=== PATIENT | female | born 1975 | race Caucasian/White ===

== ENCOUNTER 2016-07-18 00:57 | Inpatient (IN) | payer OTHER ==
[2016-07-18] VITALS (20 sets, daily range): BP systolic 115–179; BP diastolic 64–116
[~2016-07-18] VITALS: Ht 162.6 cm; Wt 54.1 kg
[~2016-07-18 00:57] MED LIST: ATIVAN0.5 MG PO; ATIVAN1 MG PO; BLOOD PRESSURE MED; BP MED; CIPROFLOXACIN500 MG PO; CYANOCOBALAM1000 MCG PO; DILANTIN100 MG PO; FERROUS SULFAT325 M2 PO; FOLBEE PLUS TABL5 MG PO; FOLVITE1 MG PO; GEMFIBROZIL600 MG PO; LEVAQUIN500 MG PO; LEVETIRACETAM1000 MG PO; LEVETIRACETAM250 MG PO; LISINOPRIL20 MG; LISINOPRIL20 MG PO; LORAZEPAM1 MG PO; Levaquin PO; MACROBID100 MG PO; MAG-OX400 M1 PO; METOCLOPRAMIDE10 MG PO; MOBIC7.5 MG PO; NOHOMEMEDS; OS-CAL 500+D T1 EAC1 PO; PHENERGAN12.5 M1 PO; PRENATAL1 EACH PO; ROBITUSSIN AC,T10 ML PO; SERTRALINE HCL100 MG PO; THERAGRAN1 TABLET PO; THIAMINE,VITAM100 MG PO; TYLENOL WITH C1 EACH PO; VITAMIN B-1100 MG PO; ZESTRIL,PRINIVI20 MG PO; ZOLOFT100 MG PO; [UNRECOGNIZED DRUG - REMARK]
[2016-07-18 01:24] LABS: CARBOXY HGB -0.1 % (0-5); PCO2 < 19 mm Hg (35-45); PO2 83 mm Hg (80-100)
[2016-07-18 01:29] LABS: COMMENTS - BLOOD GASES C+A+; FI02 21 %; O2 FLOW 0 L/MIN; SITE RR; pH 7.13 (7.35-7.45)
[2016-07-18 01:36] LABS: CREATININE 0.6 mg/dL (0.6-1.3); POTASSIUM 3.1 mEq/L (3.7-5.4)
[2016-07-18 01:55] LABS: EOSINOPHIL (%) 0.1 % (0-5); HEMATOCRIT 37.5 % (36.0-46.0); IMMATURE GRANULOCYTE (%) 2.9 % (0.0-0.7); IMMATURE GRANULOCYTE COUNT 0.4 K/uL; INSTRUMENT ABS NEUTROPHIL CT 13.6 K/uL; LYMPHOCYTE COUNT 0.5 K/uL (1.0-2.8); MCH 33.4 PG (29.0-34.0); MCHC 34.1 G/DL (30.0-36.0); MCV 97.9 FL (83-99); MEAN PLAT.VOLUME 10.2 uM^3 (9.5-12.4); MONOCYTE (%) 2.9 % (3-12); MONOCYTE COUNT 0.4 K/uL (0-0.8); NEUTROPHIL (%) 90.4 % (45-76); NEUTROPHIL COUNT 13.6 K/uL (1.8-6.4); NRBC (%) 0.8 /100 WBC (0-0); PLATELET COUNT 167 K/uL (156-360); RBC DIS.WIDTH-CV 13.4 % (11.8-14.6); RED BLOOD COUNT 3.83 M/uL (3.80-5.20)
[2016-07-18 02:03] LABS: CHLORIDE 98 mEq/L (99-109); POTASSIUM 2.8 mEq/L (3.7-5.4); SODIUM 131 mEq/L (136-147)
[2016-07-18 02:06] LABS: GLUCOSE 175 mg/dL (70-99)
[2016-07-18 02:08] LABS: INTER. NORMALIZED RATIO 1.2; PROTHROMBIN TIME 11.9 (9.2-11.2); PTT 28.9 (25-32); TOTAL BILIRUBIN 0.8 mg/dL (0.0-1.0)
[2016-07-18 02:09] LABS: ALKALINE PHOSPHATASE 73 IU/L (3-129); GFR ESTIMATE (CALCULATED) 53 mL/min/
[2016-07-18 02:10] LABS: UREA NITROGEN (BUN) 5 mg/dL (9-23)
[2016-07-18 02:13] LABS: LIPASE 54 U/L (1.0-51.0)
[2016-07-18 02:16] LABS: TROP-I INTERPRETATION NEGATIVE; TROPONIN-I < 0.01 ng/mL (0.0-0.30)
[2016-07-18 02:38] LABS: ADD MIUA? YES; BILIRUBIN NEGATIVE; BLOOD MODERATE; COLOR YELLOW ((YELLOW)); GLUCOSE (STRIP) NEGATIVE; KETONES 80; LEUKOCYTES NEGATIVE; NITRITE NEGATIVE; PROTEIN (STRIP) 100; UROBILINOGEN 0.2 MG/DL (0.2-1.0)
[2016-07-18 02:41] LABS: CARBON DIOXIDE (BICARBONATE) < 10.0 mEq/L (20-31)
[2016-07-18 02:48] LABS: BACTERIA NONE SEEN /HPF; EPITHELIAL CELLS RARE /HPF; MUCUS TRACE /LPF; RED BLOOD CELLS 0-5 /HPF (0-5); UCUL ADDED? NO; WHITE BLOOD CELLS 0-5 /HPF (0-5)
[2016-07-18 02:57] LABS: SPECIFIC GRAVITY 1.059 (1.000-1.030)
[2016-07-18 03:06] LABS: INFLUENZA A VIRAL ANTIGEN NEGATIVE; INFLUENZA B VIRAL ANTIGEN NEGATIVE
[2016-07-18 03:19] LABS: CARBOXY HGB 1.6 % (0-5); COMMENTS - BLOOD GASES C+A+; FI02 21 %; METHEMOGLOBIN 1.6 % (0-1.5); O2 FLOW 0 L/MIN; PCO2 < 19 mm Hg (35-45); PO2 92 mm Hg (80-100); SITE RR; pH 7.12 (7.35-7.45)
[2016-07-18 03:51] LABS: ANION GAP 31 MEQ/L (2-14)
[2016-07-18 03:52] LABS: SERUM ETHYL ALCOHOL < 10 mg/dL
[2016-07-18 03:55] LABS: SALICYLATE < 5.0 MG/DL (15-30)
[2016-07-18 04:09] LABS: MAGNESIUM 1.6 mg/dL (1.3-2.7)
[2016-07-18 07:03] LABS: METH RESISTANT S AUREUS PCR NEGATIVE (NEGATIVE)
[2016-07-18 07:18] LABS: PROBE CHECK PASS; SPECIMEN PROCESSING CONTROL PASS
[2016-07-18 08:36] LABS: ADD MIUA? YES; BILIRUBIN NEGATIVE; BLOOD MODERATE; COLOR AMBER ((YELLOW)); GLUCOSE (STRIP) NEGATIVE; KETONES 80; LEUKOCYTES NEGATIVE; NITRITE NEGATIVE; PROTEIN (STRIP) 100; SPECIFIC GRAVITY 1.031 (1.000-1.030); UROBILINOGEN 0.2 MG/DL (0.2-1.0)
[2016-07-18 09:27] LABS: BACTERIA RARE /HPF; EPITHELIAL CELLS RARE /HPF; MUCUS TRACE /LPF; RED BLOOD CELLS 0-5 /HPF (0-5); WHITE BLOOD CELLS 0-5 /HPF (0-5)
[2016-07-18 09:59] LABS: ADD MEDTOX COMMENT Y; AMPHETAMINE NEGATIVE (500 ng/mL); BARBITURATES NEGATIVE (200 ng/mL); BENZODIAZEPINES NEGATIVE (150 ng/mL); COCAINE PRESUMPTIVE POSITIVE (150 ng/mL); INTERNAL CONTROLS VALID? YES; METHADONE NEGATIVE (200 ng/mL); METHAMPHETAMINE NEGATIVE (500 ng/mL); OPIATES (MORPHINE) NEGATIVE (100 ng/mL); OXYCODONE NEGATIVE (100 ng/mL); PHENCYCLIDINE NEGATIVE (25 ng/mL); PROPOXYPHENE NEGATIVE (300 ng/mL); THC CANNABINOIDS NEGATIVE (50 ng/mL); TRICYCLIC ANTIDEPRESSANTS NEGATIVE (300 ng/mL)
[2016-07-18 10:43] LABS: BASE EXCESS -20.3 mEq/L (-3 to +3); BICARBONATE 7.8 mEq/L (22-26); CARBOXY HGB 1.6 % (0-5); METHEMOGLOBIN 2.3 % (0-1.5); PO2 92 mm Hg (80-100)
[2016-07-18 10:44] LABS: PCO2 25 mm Hg (35-45)
[2016-07-18 10:45] LABS: COMMENTS - BLOOD GASES C+; DEVICE VENT; FI02 50 %; MECHANICAL RATE 16 resp/min; MODE AC; PEEP 8 CM/H20; SITE RR; TIDAL VOLUME 500 ML; TOTAL RESP RATE 20 resp/min
[2016-07-18 11:01] LABS: ANION GAP 18 MEQ/L (2-14); CHLORIDE 109 MEQ/L (99-109); GLUCOSE 258 mg/dL (70-99); SAMPLE HEMOLYSIS CHECK 0; SAMPLE ICTERIC CHECK 0; SAMPLE LIPEMIA CHECK 0; SODIUM 133 MEQ/L (136-147); UREA NITROGEN (BUN) 4 mg/dL (9-23)
[2016-07-18 11:02] LABS: GFR ESTIMATE (CALCULATED) > 59 mL/min/; POTASSIUM 2.4 MEQ/L (3.7-5.4)
[2016-07-18 11:03] LABS: CARBON DIOXIDE (BICARBONATE) < 10.0 MEQ/L (20-31)
[2016-07-18 11:35] LABS: HBSG INDEX 0.22
[2016-07-18 11:36] LABS: ANTI-HEPATITIS A VIRUS (IGM) Nonreactive; HAV INDEX 0.13
[2016-07-18 11:37] LABS: ANTI-HEPATITIS B CORE (IGM) Nonreactive; HBC IgM INDEX 0.13
[2016-07-18 11:38] LABS: HIV INDEX 0.11; HIV-1/2 AB/AG COMBO Nonreactive
[2016-07-18 11:50] LABS: MAGNESIUM 1.8 mg/dl (1.3-2.7)
[2016-07-18 15:42] LABS: MCH 33.3 PG (29.0-34.0); MCHC 36.4 G/DL (30.0-36.0); MCV 91.6 FL (83-99); MEAN PLAT.VOLUME 10.2 uM^3 (9.5-12.4); PLATELET COUNT 119 K/uL (156-360); RBC DIS.WIDTH-CV 13.2 % (11.8-14.6); RBC DIS.WIDTH-SD 43.5 % (39-53); RED BLOOD COUNT 2.73 M/uL (3.80-5.20); WHITE BLOOD COUNT 10.3 K/uL (4.1-10.2)
[2016-07-18 15:45] LABS: ANION GAP 14 MEQ/L (2-14); CHLORIDE 105 MEQ/L (99-109); SAMPLE HEMOLYSIS CHECK 0; SAMPLE ICTERIC CHECK 0; SAMPLE LIPEMIA CHECK 0; SODIUM 135 MEQ/L (136-147)
[2016-07-18 15:46] LABS: MAGNESIUM 1.4 mg/dl (1.3-2.7); POTASSIUM 4.2 MEQ/L (3.7-5.4)
[2016-07-18 15:52] LABS: GFR ESTIMATE (CALCULATED) > 59 mL/min/; GLUCOSE 355 mg/dL (70-99); UREA NITROGEN (BUN) 3 mg/dL (9-23)
[2016-07-18 17:19] LABS: INTER. NORMALIZED RATIO 1.2; PROTHROMBIN TIME 12.2 (9.2-11.2); PTT 25.4 (25-32)
[2016-07-18 17:32] LABS: AMYLASE 18 IU/L (1-118)
[2016-07-18 17:38] LABS: LIPASE 53 U/L (1.0-51.0)
[2016-07-18 19:55] LABS: POINT-OF-CARE METER ID UU14162636
[2016-07-18] MEDS ORDERED: RIZATRIPTAN10 MG PO (20:04)
[2016-07-18] MEDS ORDERED: LISINOPRIL10 MG PO (20:04)
[2016-07-18] MEDS ORDERED: TOPAMAX25 MG PO (20:05)
[2016-07-18] MEDS ORDERED: GEMFIBROZIL600 MG PO (20:05)
[2016-07-18] MEDS ORDERED: VISTARIL25 MG PO (20:06)
[2016-07-18] MEDS ORDERED: CLONAZEPAM0.5 MG PO (20:07)
[2016-07-18] MEDS ORDERED: OMEPRAZOLE20 MG PO (20:07)
[2016-07-18 21:05] LABS: ANION GAP 15 MEQ/L (2-14); CHLORIDE 105 MEQ/L (99-109); GFR ESTIMATE (CALCULATED) > 59 mL/min/; GLUCOSE 251 mg/dL (70-99); SAMPLE HEMOLYSIS CHECK 0; SAMPLE ICTERIC CHECK 0; SAMPLE LIPEMIA CHECK 0; SODIUM 138 MEQ/L (136-147); UREA NITROGEN (BUN) 4 mg/dL (9-23)
[2016-07-18 21:16] LABS: POTASSIUM 1.8 MEQ/L (3.7-5.4)
[2016-07-18 22:14] LABS: POINT-OF-CARE METER ID UU14162636
[2016-07-19] VITALS (25 sets, daily range): BP systolic 84–128; BP diastolic 51–81
[2016-07-19 00:10] LABS: POINT-OF-CARE METER ID UU14174217
[2016-07-19 00:48] LABS: CHLORIDE 105 mEq/L (99-109); SODIUM 139 mEq/L (136-147)
[2016-07-19 00:50] LABS: GLUCOSE 175 mg/dL (70-99)
[2016-07-19 00:51] LABS: ANION GAP 12 MEQ/L (2-14)
[2016-07-19 00:54] LABS: GFR ESTIMATE (CALCULATED) > 59 mL/min/
[2016-07-19 00:55] LABS: UREA NITROGEN (BUN) 4 mg/dL (9-23)
[2016-07-19 02:32] LABS: POINT-OF-CARE METER ID UU14174217
[2016-07-19 04:45] LABS: POINT-OF-CARE METER ID UU14174217
[2016-07-19 05:42] LABS: POINT-OF-CARE METER ID UU14174217
[2016-07-19 05:56] LABS: HEMATOCRIT 24.5 % (36.0-46.0); MCH 32.4 PG (29.0-34.0); MCHC 36.3 G/DL (30.0-36.0); MCV 89.1 FL (83-99); NRBC (%) 3.8 /100 WBC (0-0); PLATELET COUNT 127 K/uL (156-360); RBC DIS.WIDTH-CV 12.8 % (11.8-14.6); RBC DIS.WIDTH-SD 40.3 % (39-53); RED BLOOD COUNT 2.75 M/uL (3.80-5.20); WHITE BLOOD COUNT 9.8 K/uL (4.1-10.2)
[2016-07-19 06:15] LABS: INTER. NORMALIZED RATIO 1.2; PTT 28.9 (25-32)
[2016-07-19 07:25] LABS: ALKALINE PHOSPHATASE 37 IU/L (3-129); ANION GAP 14 MEQ/L (2-14); CHLORIDE 100 MEQ/L (99-109); GFR ESTIMATE (CALCULATED) > 59 mL/min/; SAMPLE HEMOLYSIS CHECK 0; SAMPLE ICTERIC CHECK 0; SAMPLE LIPEMIA CHECK 0; SODIUM 143 MEQ/L (136-147); TOTAL BILIRUBIN 0.9 MG/DL (0.0-1.0); UREA NITROGEN (BUN) 5 mg/dL (9-23)
[2016-07-19 07:26] LABS: GLUCOSE 109 mg/dL (70-99); POTASSIUM 2.1 MEQ/L (3.7-5.4)
[2016-07-19 08:29] LABS: POINT-OF-CARE METER ID UU13113731
[2016-07-19 09:46] LABS: HEMATOCRIT 20.9 % (36.0-46.0); MCH 33.1 PG (29.0-34.0); MCHC 37.3 G/DL (30.0-36.0); MCV 88.6 FL (83-99); MEAN PLAT.VOLUME 11.1 uM^3 (9.5-12.4); NRBC (%) 5.2 /100 WBC (0-0); PLATELET COUNT 114 K/uL (156-360); RBC DIS.WIDTH-CV 12.8 % (11.8-14.6); RBC DIS.WIDTH-SD 40.7 % (39-53); RED BLOOD COUNT 2.36 M/uL (3.80-5.20); WHITE BLOOD COUNT 7.1 K/uL (4.1-10.2)
[2016-07-19 09:55] LABS: CHLORIDE 101 mEq/L (99-109); POTASSIUM 2.5 mEq/L (3.7-5.4); SODIUM 140 mEq/L (136-147)
[2016-07-19 09:57] LABS: CARBON DIOXIDE (BICARBONATE) 30.4 MEQ/L (20-31)
[2016-07-19 09:59] LABS: ANION GAP 15 MEQ/L (2-14)
[2016-07-19 10:01] LABS: GFR ESTIMATE (CALCULATED) > 59 mL/min/
[2016-07-19 10:02] LABS: GLUCOSE 231 mg/dL (70-99); UREA NITROGEN (BUN) 5 mg/dL (9-23)
[2016-07-19 10:09] LABS: TROP-I INTERPRETATION NEGATIVE; TROPONIN-I 0.02 ng/mL (0.0-0.30)
[2016-07-19 10:29] LABS: BASE EXCESS 4.7 mEq/L (-3 to +3); BICARBONATE 26.9 mEq/L (22-26); CARBOXY HGB 1.5 % (0-5); COMMENTS - BLOOD GASES C+; METHEMOGLOBIN 1.3 % (0-1.5); PCO2 30 mm Hg (35-45); PO2 112 mm Hg (80-100); SITE ALINE
[2016-07-19 10:30] LABS: DEVICE 980 VENTILATOR; FI02 40 %; MECHANICAL RATE 16 resp/min; MODE AC; PEEP 8 CM/H20; TIDAL VOLUME 440 ML; TOTAL RESP RATE 16 resp/min; pH 7.56 (7.35-7.45)
[2016-07-19 10:33] LABS: BASE EXCESS 6.9 mEq/L (-3 to +3); BICARBONATE 30.2 mEq/L (22-26); CARBOXY HGB 1.5 % (0-5); COMMENTS - BLOOD GASES C+DREW BY RN; DEVICE 980 VENTILATOR; FI02 40 %; MECHANICAL RATE 16 resp/min; METHEMOGLOBIN 1.7 % (0-1.5); MODE AC; PCO2 37 mm Hg (35-45); PO2 < 28 mm Hg (80-100); TOTAL RESP RATE 16 resp/min; pH 7.52 (7.35-7.45)
[2016-07-19 10:34] LABS: PEEP 8 CM/H20; SITE CENTRAL LINE/VENOUS; TIDAL VOLUME 440 ML
[2016-07-19 10:36] LABS: HPCA INDEX 0.09
[2016-07-19 12:40] LABS: POINT-OF-CARE METER ID UU13113731
[2016-07-19 15:14] LABS: POINT-OF-CARE METER ID UU13113731
[2016-07-19 16:22] LABS: ANION GAP 13 MEQ/L (2-14); CHLORIDE 103 MEQ/L (99-109); GFR ESTIMATE (CALCULATED) > 59 mL/min/; GLUCOSE 186 mg/dL (70-99); POTASSIUM 3.1 MEQ/L (3.7-5.4); SAMPLE HEMOLYSIS CHECK 0; SAMPLE ICTERIC CHECK 0; SAMPLE LIPEMIA CHECK 0; SODIUM 139 MEQ/L (136-147); UREA NITROGEN (BUN) 5 mg/dL (9-23)
[2016-07-19 16:24] LABS: TROP-I INTERPRETATION NEGATIVE; TROPONIN-I 0.07 ng/mL (0.0-0.30)
[2016-07-19 17:06] LABS: MAGNESIUM 2.4 mg/dl (1.3-2.7)
[2016-07-19 18:05] LABS: POINT-OF-CARE METER ID UU14162636
[2016-07-19 18:49] LABS: CARBON DIOXIDE (BICARBONATE) 28.2 MEQ/L (20-31)
[2016-07-19 20:08] LABS: POINT-OF-CARE METER ID UU14174217
[2016-07-19 21:40] LABS: PCO2 32 mm Hg (35-45); PO2 35 mm Hg (80-100)
[2016-07-19 21:41] LABS: CARBOXY HGB 1.7 % (0-5); METHEMOGLOBIN 1.8 % (0-1.5); O2 SATURATION (CALCULATED) 77.8 % (95-99)
[2016-07-19 21:42] LABS: DEVICE VENT; SITE CENTRAL LINE
[2016-07-19 21:43] LABS: FI02 35 %; MECHANICAL RATE 12 resp/min; MODE AC
[2016-07-19 22:22] LABS: POINT-OF-CARE METER ID UU14162636
[2016-07-19 22:30] LABS: CHLORIDE 107 mEq/L (99-109); POTASSIUM 3.3 mEq/L (3.7-5.4); SODIUM 140 mEq/L (136-147)
[2016-07-19 22:32] LABS: GLUCOSE 152 mg/dL (70-99)
[2016-07-19 22:34] LABS: ANION GAP 11 MEQ/L (2-14)
[2016-07-19 22:36] LABS: GFR ESTIMATE (CALCULATED) > 59 mL/min/
[2016-07-19 22:37] LABS: UREA NITROGEN (BUN) 5 mg/dL (9-23)
[2016-07-19 22:40] LABS: MAGNESIUM 1.7 mg/dL (1.3-2.7)
[2016-07-20] VITALS (7 sets, daily range): BP systolic 85–120; BP diastolic 60–101
[2016-07-20 00:21] LABS: POINT-OF-CARE METER ID UU14162636
[2016-07-20 02:01] LABS: POINT-OF-CARE USER ID 609231305
[2016-07-20 04:47] LABS: CHLORIDE 110 mEq/L (99-109); SODIUM 139 mEq/L (136-147)
[2016-07-20 04:48] LABS: MAGNESIUM 2.8 mg/dL (1.3-2.7); POTASSIUM 4.6 mEq/L (3.7-5.4)
[2016-07-20 04:49] LABS: GLUCOSE 146 mg/dL (70-99)
[2016-07-20 04:51] LABS: ANION GAP 10 MEQ/L (2-14)
[2016-07-20 04:53] LABS: GFR ESTIMATE (CALCULATED) > 59 mL/min/
[2016-07-20 04:54] LABS: UREA NITROGEN (BUN) 4 mg/dL (9-23)
[2016-07-20 08:49] LABS: MCH 32.6 PG (29.0-34.0); MCHC 35.4 G/DL (30.0-36.0); MCV 92.2 FL (83-99); MEAN PLAT.VOLUME 10.9 uM^3 (9.5-12.4); NRBC (%) 2.2 /100 WBC (0-0); PLATELET COUNT 122 K/uL (156-360); RBC DIS.WIDTH-SD 46.1 % (39-53); RED BLOOD COUNT 2.82 M/uL (3.80-5.20)
[2016-07-20 09:04] LABS: BASE EXCESS -5.3 mEq/L (-3 to +3); BICARBONATE 18.2 mEq/L (22-26); CARBOXY HGB 1.5 % (0-5); METHEMOGLOBIN 1.6 % (0-1.5); PCO2 28 mm Hg (35-45); PO2 84 mm Hg (80-100); pH 7.42 (7.35-7.45)
[2016-07-20 09:05] LABS: COMMENTS - BLOOD GASES C+; DEVICE 980 VENTILATOR; FI02 30 %; MECHANICAL RATE 12 resp/min; MODE AC; PEEP 8 CM/H20; SITE LT RADIAL ALINE; TIDAL VOLUME 440 ML; TOTAL RESP RATE 24 resp/min
[2016-07-20 09:23] LABS: EOSINOPHIL (%) 0.2 % (0-5); IMMATURE GRANULOCYTE (%) 2.6 % (0.0-0.7); IMMATURE GRANULOCYTE COUNT 0.2 K/uL; INSTRUMENT ABS NEUTROPHIL CT 7.4 K/uL; LYMPHOCYTE COUNT 0.8 K/uL (1.0-2.8); MONOCYTE (%) 5.8 % (3-12); MONOCYTE COUNT 0.5 K/uL (0-0.8); NEUTROPHIL COUNT 7.4 K/uL (1.8-6.4)
[2016-07-20 12:30] LABS: POINT-OF-CARE METER ID UU14174217
[2016-07-20 14:23] LABS: ANION GAP 12 MEQ/L (2-14); CHLORIDE 108 MEQ/L (99-109); GFR ESTIMATE (CALCULATED) > 59 mL/min/; GLUCOSE 189 mg/dL (70-99); POTASSIUM 4.4 MEQ/L (3.7-5.4); SAMPLE HEMOLYSIS CHECK 0; SAMPLE ICTERIC CHECK 0; SAMPLE LIPEMIA CHECK 0; SODIUM 137 MEQ/L (136-147); UREA NITROGEN (BUN) 4 mg/dL (9-23)
[2016-07-20 23:08] LABS: ANION GAP 9 MEQ/L (2-14); CHLORIDE 106 MEQ/L (99-109); GFR ESTIMATE (CALCULATED) > 59 mL/min/; GLUCOSE 174 mg/dL (70-99); MAGNESIUM 1.8 mg/dl (1.3-2.7); SAMPLE HEMOLYSIS CHECK 1; SAMPLE ICTERIC CHECK 0; SAMPLE LIPEMIA CHECK 0; SODIUM 135 MEQ/L (136-147); UREA NITROGEN (BUN) 6 mg/dL (9-23)
[2016-07-20 23:10] LABS: POTASSIUM 4.1 MEQ/L (3.7-5.4)
[2016-07-21] VITALS: BP 133/91
[2016-07-21 04:00] VITALS: BP 137/93
[2016-07-21 07:01] LABS: ANION GAP 10 MEQ/L (2-14); CHLORIDE 106 MEQ/L (99-109); GFR ESTIMATE (CALCULATED) > 59 mL/min/; GLUCOSE 147 mg/dL (70-99); MAGNESIUM 1.6 mg/dl (1.3-2.7); SAMPLE HEMOLYSIS CHECK 0; SAMPLE ICTERIC CHECK 0; SAMPLE LIPEMIA CHECK 0; SODIUM 137 MEQ/L (136-147); UREA NITROGEN (BUN) 8 mg/dL (9-23)
[2016-07-21 08:00] VITALS: BP 140/106
[2016-07-21 12:00] VITALS: BP 130/89
[2016-07-21 14:47] LABS: ANION GAP 9 MEQ/L (2-14); CHLORIDE 106 MEQ/L (99-109); GFR ESTIMATE (CALCULATED) > 59 mL/min/; GLUCOSE 136 mg/dL (70-99); MAGNESIUM 1.5 mg/dl (1.3-2.7); POTASSIUM 3.7 MEQ/L (3.7-5.4); SAMPLE HEMOLYSIS CHECK 0; SAMPLE ICTERIC CHECK 0; SAMPLE LIPEMIA CHECK 0; SODIUM 137 MEQ/L (136-147); UREA NITROGEN (BUN) 9 mg/dL (9-23)
[2016-07-21 16:00] VITALS: BP 121/87
[2016-07-21 20:00] VITALS: BP 109/89
[2016-07-21 22:06] LABS: ANION GAP 9 MEQ/L (2-14); CHLORIDE 106 MEQ/L (99-109); GFR ESTIMATE (CALCULATED) > 59 mL/min/; GLUCOSE 126 mg/dL (70-99); POTASSIUM 3.9 MEQ/L (3.7-5.4); SAMPLE HEMOLYSIS CHECK 0; SAMPLE ICTERIC CHECK 0; SAMPLE LIPEMIA CHECK 0; SODIUM 137 MEQ/L (136-147); UREA NITROGEN (BUN) 10 mg/dL (9-23)
[2016-07-21 22:07] LABS: MAGNESIUM 1.9 mg/dl (1.3-2.7)
[2016-07-22] VITALS: BP 112/79
[2016-07-22 00:03] LABS: POINT-OF-CARE METER ID UU14162636; POINT-OF-CARE USER ID RADDRS44
[2016-07-22 04:00] VITALS: BP 113/84
[2016-07-22 05:33] LABS: POINT-OF-CARE METER ID UU14162636
[2016-07-22 06:56] LABS: ANION GAP 9 MEQ/L (2-14); CHLORIDE 105 MEQ/L (99-109); GFR ESTIMATE (CALCULATED) > 59 mL/min/; GLUCOSE 158 mg/dL (70-99); MAGNESIUM 1.8 mg/dl (1.3-2.7); POTASSIUM 3.9 MEQ/L (3.7-5.4); SAMPLE HEMOLYSIS CHECK 0; SAMPLE ICTERIC CHECK 0; SAMPLE LIPEMIA CHECK 0; SODIUM 137 MEQ/L (136-147); UREA NITROGEN (BUN) 12 mg/dL (9-23)
[2016-07-22 08:00] VITALS: BP 124/99
[2016-07-22 12:00] VITALS: BP 112/74
[2016-07-22 12:34] LABS: POINT-OF-CARE METER ID UU14162636
[2016-07-22 14:25] LABS: ANION GAP 8 MEQ/L (2-14); CHLORIDE 104 MEQ/L (99-109); GFR ESTIMATE (CALCULATED) > 59 mL/min/; GLUCOSE 155 mg/dL (70-99); MAGNESIUM 1.7 mg/dl (1.3-2.7); SAMPLE HEMOLYSIS CHECK 0; SAMPLE ICTERIC CHECK 0; SAMPLE LIPEMIA CHECK 0; SODIUM 136 MEQ/L (136-147); UREA NITROGEN (BUN) 13 mg/dL (9-23)
[2016-07-22 16:00] VITALS: BP 104/83
[2016-07-22 18:18] LABS: POINT-OF-CARE METER ID UU14174217
[2016-07-22 22:18] LABS: ANION GAP 9 MEQ/L (2-14); CHLORIDE 103 MEQ/L (99-109); GFR ESTIMATE (CALCULATED) > 59 mL/min/; GLUCOSE 106 mg/dL (70-99); MAGNESIUM 1.6 mg/dl (1.3-2.7); POTASSIUM 3.7 MEQ/L (3.7-5.4); SAMPLE HEMOLYSIS CHECK 0; SAMPLE ICTERIC CHECK 0; SAMPLE LIPEMIA CHECK 0; SODIUM 136 MEQ/L (136-147); UREA NITROGEN (BUN) 15 mg/dL (9-23)
[2016-07-23] VITALS (9 sets, daily range): BP systolic 94–123; BP diastolic 63–89
[2016-07-23 00:24] LABS: POINT-OF-CARE METER ID UU14174217
[2016-07-23 06:27] LABS: HEMATOCRIT 27.8 % (36.0-46.0); MCH 32.7 PG (29.0-34.0); MCHC 33.5 G/DL (30.0-36.0); MEAN PLAT.VOLUME 10.6 uM^3 (9.5-12.4); NRBC (%) 4.7 /100 WBC (0-0); RBC DIS.WIDTH-CV 14.9 % (11.8-14.6); RBC DIS.WIDTH-SD 52.4 % (39-53); RED BLOOD COUNT 2.84 M/uL (3.80-5.20); WHITE BLOOD COUNT 10.4 K/uL (4.1-10.2)
[2016-07-23 06:36] LABS: ANION GAP 10 MEQ/L (2-14); CHLORIDE 104 MEQ/L (99-109); GFR ESTIMATE (CALCULATED) > 59 mL/min/; GLUCOSE 91 mg/dL (70-99); MAGNESIUM 1.5 mg/dl (1.3-2.7); POTASSIUM 3.5 MEQ/L (3.7-5.4); SAMPLE HEMOLYSIS CHECK 0; SAMPLE ICTERIC CHECK 0; SAMPLE LIPEMIA CHECK 0; SODIUM 137 MEQ/L (136-147); UREA NITROGEN (BUN) 16 mg/dL (9-23)
[2016-07-23 06:40] LABS: MCV 97.9 FL (83-99); PLATELET COUNT 178 K/uL (156-360)
[2016-07-23 13:01] LABS: ABS NEUTROPHIL COUNT 5.6; EOSINOPHIL ABS CT 0; INSTRUMENT ABS NEUTROPHIL CT 5.1 K/uL; PLAT.SUFFICIENCY ADEQUATE
[2016-07-23 13:33] LABS: POINT-OF-CARE METER ID UU14162636
[2016-07-24] VITALS (24 sets, daily range): BP systolic 96–154; BP diastolic 66–99
[2016-07-24 06:56] LABS: MCH 32.3 PG (29.0-34.0); MCHC 32.3 G/DL (30.0-36.0); MEAN PLAT.VOLUME 10.2 uM^3 (9.5-12.4); PLATELET COUNT 231 K/uL (156-360); RBC DIS.WIDTH-CV 14.9 % (11.8-14.6); RBC DIS.WIDTH-SD 54.2 % (39-53); WHITE BLOOD COUNT 12.3 K/uL (4.1-10.2)
[2016-07-24 07:41] LABS: ANION GAP 11 MEQ/L (2-14); CHLORIDE 102 MEQ/L (99-109); GFR ESTIMATE (CALCULATED) > 59 mL/min/; GLUCOSE 110 mg/dL (70-99); POTASSIUM 3.9 MEQ/L (3.7-5.4); SAMPLE HEMOLYSIS CHECK 0; SAMPLE ICTERIC CHECK 0; SAMPLE LIPEMIA CHECK 0; SODIUM 138 MEQ/L (136-147); UREA NITROGEN (BUN) 18 mg/dL (9-23)
[2016-07-24 07:43] LABS: MAGNESIUM 1.9 mg/dl (1.3-2.7)
[2016-07-24 11:27] LABS: POINT-OF-CARE METER ID UU14162636
[2016-07-24 14:34] LABS: BASE EXCESS 2.3 mEq/L (-3 to +3); CARBOXY HGB 1.9 % (0-5); METHEMOGLOBIN 1.6 % (0-1.5); pH 7.41 (7.35-7.45)
[2016-07-24 14:35] LABS: BICARBONATE 27.3 mEq/L (22-26); COMMENTS - BLOOD GASES AC+; DEVICE HFNC; O2 FLOW 10 L/MIN; PCO2 43 mm Hg (35-45); PO2 61 mm Hg (80-100); SITE RR; TOTAL RESP RATE 36 resp/min
[2016-07-24 18:15] LABS: POINT-OF-CARE METER ID UU14162636
[2016-07-25] VITALS (24 sets, daily range): BP systolic 90–135; BP diastolic 54–85
[2016-07-25 01:15] LABS: POINT-OF-CARE METER ID UU14162636
[2016-07-25 05:40] LABS: POINT-OF-CARE METER ID UU14174217
[2016-07-25 05:55] LABS: BASE EXCESS 6.1 mEq/L (-3 to +3); BICARBONATE 29.5 mEq/L (22-26); CARBOXY HGB 1.7 % (0-5); METHEMOGLOBIN 1.5 % (0-1.5); PO2 69 mm Hg (80-100)
[2016-07-25 05:56] LABS: COMMENTS - BLOOD GASES C+; DEVICE PB840; FI02 50 %; MECHANICAL RATE 16 resp/min; MODE AC; PCO2 37 mm Hg (35-45); PEEP 5 CM/H20; SITE LR; TIDAL VOLUME 400 ML; TOTAL RESP RATE 16 resp/min; pH 7.51 (7.35-7.45)
[2016-07-25 06:06] LABS: ANION GAP 11 MEQ/L (2-14); CHLORIDE 99 MEQ/L (99-109); CREATINE KINASE 230 IU/L (1-294); GFR ESTIMATE (CALCULATED) > 59 mL/min/; POTASSIUM 3.5 MEQ/L (3.7-5.4); SAMPLE HEMOLYSIS CHECK 0; SAMPLE ICTERIC CHECK 0; SAMPLE LIPEMIA CHECK 0; SODIUM 138 MEQ/L (136-147); TRIGLYCERIDES 305 MG/DL (Normal: <150); UREA NITROGEN (BUN) 12 mg/dL (9-23)
[2016-07-25 06:07] LABS: GLUCOSE 75 mg/dL (70-99); MAGNESIUM 1.6 mg/dl (1.3-2.7)
[2016-07-25 06:18] LABS: HEMATOCRIT 30.6 % (36.0-46.0); MCH 32.1 PG (29.0-34.0); MCHC 32.4 G/DL (30.0-36.0); MCV 99.4 FL (83-99); MEAN PLAT.VOLUME 9.8 uM^3 (9.5-12.4); NRBC (%) 0.3 /100 WBC (0-0); PLATELET COUNT 241 K/uL (156-360); RBC DIS.WIDTH-CV 14.6 % (11.8-14.6); RBC DIS.WIDTH-SD 52.9 % (39-53); RED BLOOD COUNT 3.08 M/uL (3.80-5.20)
[2016-07-25 06:27] LABS: WHITE BLOOD COUNT 17.1 K/uL (4.1-10.2)
[2016-07-25 12:08] LABS: POINT-OF-CARE METER ID UU14174217
[2016-07-25 17:57] LABS: POINT-OF-CARE METER ID UU14174217
[2016-07-25 23:40] LABS: POINT-OF-CARE METER ID UU14174217
[2016-07-26] VITALS (23 sets, daily range): BP systolic 97–157; BP diastolic 60–99
[2016-07-26 05:38] LABS: POINT-OF-CARE METER ID UU14174217
[2016-07-26 11:46] LABS: POINT-OF-CARE METER ID UU14162636
[2016-07-26 12:10] LABS: EOSINOPHIL (%) 0.1 % (0-5); HEMATOCRIT 28.7 % (36.0-46.0); IMMATURE GRANULOCYTE (%) 1.6 % (0.0-0.7); IMMATURE GRANULOCYTE COUNT 0.2 K/uL; INSTRUMENT ABS NEUTROPHIL CT 12.1 K/uL; LYMPHOCYTE COUNT 0.9 K/uL (1.0-2.8); MCH 32.5 PG (29.0-34.0); MCHC 33.1 G/DL (30.0-36.0); MCV 98.3 FL (83-99); MEAN PLAT.VOLUME 9.9 uM^3 (9.5-12.4); MONOCYTE (%) 6.3 % (3-12); MONOCYTE COUNT 0.9 K/uL (0-0.8); NEUTROPHIL (%) 85.7 % (45-76); NEUTROPHIL COUNT 12.1 K/uL (1.8-6.4); PLATELET COUNT 292 K/uL (156-360); RBC DIS.WIDTH-CV 14.5 % (11.8-14.6); RBC DIS.WIDTH-SD 52.1 % (39-53); RED BLOOD COUNT 2.92 M/uL (3.80-5.20); WHITE BLOOD COUNT 14.1 K/uL (4.1-10.2)
[2016-07-26 12:26] LABS: ANION GAP 11 MEQ/L (2-14); CHLORIDE 98 MEQ/L (99-109); MAGNESIUM 1.7 mg/dl (1.3-2.7); POTASSIUM 3.1 MEQ/L (3.7-5.4); SAMPLE HEMOLYSIS CHECK 0; SAMPLE ICTERIC CHECK 0; SAMPLE LIPEMIA CHECK 0; SODIUM 139 MEQ/L (136-147)
[2016-07-26 12:34] LABS: GFR ESTIMATE (CALCULATED) > 59 mL/min/; UREA NITROGEN (BUN) 11 mg/dL (9-23)
[2016-07-26 12:35] LABS: GLUCOSE 105 mg/dL (70-99)
[2016-07-26 13:37] LABS: BASE EXCESS 7.1 mEq/L (-3 to +3); BICARBONATE 31.3 mEq/L (22-26); CARBOXY HGB 1.6 % (0-5); COMMENTS - BLOOD GASES A+C+; DEVICE PB 840; FI02 40 %; METHEMOGLOBIN 1.8 % (0-1.5); MODE SPONT TC; PCO2 42 mm Hg (35-45); PEEP 5 CM/H20; PO2 90 mm Hg (80-100); SITE RR; TOTAL RESP RATE 20 resp/min; pH 7.48 (7.35-7.45)
[2016-07-27] VITALS (13 sets, daily range): BP systolic 135–181; BP diastolic 77–97
[2016-07-27 06:07] LABS: EOSINOPHIL (%) 0.1 % (0-5); HEMATOCRIT 29.9 % (36.0-46.0); IMMATURE GRANULOCYTE (%) 1.6 % (0.0-0.7); IMMATURE GRANULOCYTE COUNT 0.2 K/uL; INSTRUMENT ABS NEUTROPHIL CT 10.6 K/uL; MCH 32.3 PG (29.0-34.0); MCHC 32.4 G/DL (30.0-36.0); MCV 99.7 FL (83-99); MEAN PLAT.VOLUME 9.9 uM^3 (9.5-12.4); MONOCYTE (%) 6.2 % (3-12); MONOCYTE COUNT 0.8 K/uL (0-0.8); NEUTROPHIL (%) 83.9 % (45-76); NEUTROPHIL COUNT 10.6 K/uL (1.8-6.4); NRBC (%) 0.2 /100 WBC (0-0); PLATELET COUNT 304 K/uL (156-360); RBC DIS.WIDTH-CV 14.2 % (11.8-14.6); RBC DIS.WIDTH-SD 51.6 % (39-53); WHITE BLOOD COUNT 12.7 K/uL (4.1-10.2)
[2016-07-27 06:30] LABS: ANION GAP 14 MEQ/L (2-14); CHLORIDE 100 MEQ/L (99-109); CREATINE KINASE 115 IU/L (1-294); GFR ESTIMATE (CALCULATED) > 59 mL/min/; MAGNESIUM 1.9 mg/dl (1.3-2.7); POTASSIUM 3.4 MEQ/L (3.7-5.4); SAMPLE HEMOLYSIS CHECK 0; SAMPLE ICTERIC CHECK 0; SAMPLE LIPEMIA CHECK 0; SODIUM 138 MEQ/L (136-147); UREA NITROGEN (BUN) 11 mg/dL (9-23)
[2016-07-27 06:31] LABS: GLUCOSE 72 mg/dL (70-99)
[2016-07-27] MEDS ORDERED: IBUPROFEN800 MG PO (13:43)
[2016-07-27] MEDS ORDERED: GABAPENTIN100 MG PO (13:44)
[2016-07-28] VITALS (10 sets, daily range): BP systolic 95–165; BP diastolic 70–98
[2016-07-28 05:29] LABS: EOSINOPHIL (%) 0.2 % (0-5); IMMATURE GRANULOCYTE (%) 1.3 % (0.0-0.7); IMMATURE GRANULOCYTE COUNT 0.1 K/uL; INSTRUMENT ABS NEUTROPHIL CT 8.8 K/uL; LYMPHOCYTE COUNT 0.9 K/uL (1.0-2.8); MCH 31.9 PG (29.0-34.0); MCHC 32.3 G/DL (30.0-36.0); MCV 98.7 FL (83-99); MEAN PLAT.VOLUME 9.6 uM^3 (9.5-12.4); MONOCYTE (%) 4.6 % (3-12); MONOCYTE COUNT 0.5 K/uL (0-0.8); NEUTROPHIL COUNT 8.8 K/uL (1.8-6.4); PLATELET COUNT 314 K/uL (156-360); RED BLOOD COUNT 3.04 M/uL (3.80-5.20); WHITE BLOOD COUNT 10.4 K/uL (4.1-10.2)
[2016-07-28 05:51] LABS: ANION GAP 12 MEQ/L (2-14); CHLORIDE 101 MEQ/L (99-109); GFR ESTIMATE (CALCULATED) > 59 mL/min/; GLUCOSE 102 mg/dL (70-99); IRON 57 MCG/DL (35-150); POTASSIUM 3.2 MEQ/L (3.7-5.4); SAMPLE HEMOLYSIS CHECK 0; SAMPLE ICTERIC CHECK 0; SAMPLE LIPEMIA CHECK 0; SODIUM 137 MEQ/L (136-147); UREA NITROGEN (BUN) 12 mg/dL (9-23)
[2016-07-28 05:52] LABS: MAGNESIUM 1.4 mg/dl (1.3-2.7)
[2016-07-29 00:06] VITALS: BP 162/84
[2016-07-29 04:10] VITALS: BP 164/89
[2016-07-29 05:31] LABS: EOSINOPHIL (%) 1.1 % (0-5); EOSINOPHIL COUNT 0.1 K/uL (0-0.3); HEMATOCRIT 29.6 % (36.0-46.0); IMMATURE GRANULOCYTE (%) 1.2 % (0.0-0.7); IMMATURE GRANULOCYTE COUNT 0.1 K/uL; INSTRUMENT ABS NEUTROPHIL CT 5.8 K/uL; LYMPHOCYTE COUNT 2.7 K/uL (1.0-2.8); MCHC 32.4 G/DL (30.0-36.0); MCV 98.7 FL (83-99); MEAN PLAT.VOLUME 9.7 uM^3 (9.5-12.4); MONOCYTE (%) 7.4 % (3-12); MONOCYTE COUNT 0.7 K/uL (0-0.8); NEUTROPHIL (%) 61.4 % (45-76); NEUTROPHIL COUNT 5.8 K/uL (1.8-6.4); PLATELET COUNT 357 K/uL (156-360); RBC DIS.WIDTH-CV 13.8 % (11.8-14.6); RBC DIS.WIDTH-SD 49.9 % (39-53); WHITE BLOOD COUNT 9.4 K/uL (4.1-10.2)
[2016-07-29 05:56] LABS: ANION GAP 10 MEQ/L (2-14); CHLORIDE 104 MEQ/L (99-109); GFR ESTIMATE (CALCULATED) > 59 mL/min/; GLUCOSE 76 mg/dL (70-99); MAGNESIUM 1.3 mg/dl (1.3-2.7); POTASSIUM 3.2 MEQ/L (3.7-5.4); SAMPLE HEMOLYSIS CHECK 0; SAMPLE ICTERIC CHECK 0; SAMPLE LIPEMIA CHECK 0; SODIUM 140 MEQ/L (136-147); UREA NITROGEN (BUN) 16 mg/dL (9-23)
[2016-07-29 08:04] VITALS: BP 124/89
[2016-07-29 11:53] VITALS: BP 144/76
[2016-07-29 20:33] VITALS: BP 140/77
[2016-07-29 23:23] VITALS: BP 155/87
[2016-07-30 04:17] VITALS: BP 164/96
[2016-07-30 06:13] LABS: EOSINOPHIL (%) 0.6 % (0-5); EOSINOPHIL COUNT 0.1 K/uL (0-0.3); HEMATOCRIT 27.9 % (36.0-46.0); IMMATURE GRANULOCYTE (%) 0.7 % (0.0-0.7); IMMATURE GRANULOCYTE COUNT 0.1 K/uL; LYMPHOCYTE COUNT 2.4 K/uL (1.0-2.8); MCHC 31.9 G/DL (30.0-36.0); MCV 100.4 FL (83-99); MEAN PLAT.VOLUME 10.1 uM^3 (9.5-12.4); MONOCYTE (%) 7.5 % (3-12); MONOCYTE COUNT 0.8 K/uL (0-0.8); NEUTROPHIL (%) 67.5 % (45-76); PLATELET COUNT 288 K/uL (156-360); RBC DIS.WIDTH-CV 13.8 % (11.8-14.6); RBC DIS.WIDTH-SD 50.4 % (39-53); RED BLOOD COUNT 2.78 M/uL (3.80-5.20); WHITE BLOOD COUNT 10.3 K/uL (4.1-10.2)
[2016-07-30 06:40] LABS: ANION GAP 8 MEQ/L (2-14); CHLORIDE 109 MEQ/L (99-109); GFR ESTIMATE (CALCULATED) > 59 mL/min/; GLUCOSE 84 mg/dL (70-99); POTASSIUM 3.3 MEQ/L (3.7-5.4); SAMPLE HEMOLYSIS CHECK 0; SAMPLE ICTERIC CHECK 0; SAMPLE LIPEMIA CHECK 0; SODIUM 140 MEQ/L (136-147); UREA NITROGEN (BUN) 15 mg/dL (9-23)
[2016-07-30 06:41] LABS: MAGNESIUM 1.7 mg/dl (1.3-2.7)
[2016-07-30 08:20] VITALS: BP 146/82
[2016-07-30 12:26] VITALS: BP 144/84
[2016-07-30 16:19] VITALS: BP 155/90
[2016-07-30 20:52] VITALS: BP 152/75
[2016-07-31 01:03] VITALS: BP 143/70
[2016-07-31 04:53] VITALS: BP 139/85
[2016-07-31 05:55] LABS: ANION GAP 10 MEQ/L (2-14); CHLORIDE 107 MEQ/L (99-109); GFR ESTIMATE (CALCULATED) > 59 mL/min/; GLUCOSE 82 mg/dL (70-99); MAGNESIUM 1.5 mg/dl (1.3-2.7); SAMPLE HEMOLYSIS CHECK 1; SAMPLE ICTERIC CHECK 0; SAMPLE LIPEMIA CHECK 0; SODIUM 138 MEQ/L (136-147); UREA NITROGEN (BUN) 14 mg/dL (9-23)
[2016-07-31 05:57] LABS: POTASSIUM 3.8 MEQ/L (3.7-5.4)
[2016-07-31 06:24] LABS: ABS NEUTROPHIL COUNT 8.7; EOSINOPHIL ABS CT 0; HEMATOCRIT 29.1 % (36.0-46.0); INSTRUMENT ABS NEUTROPHIL CT 7.5 K/uL; LYMPHOCYTES 15.6 % (15.0-45.0); MCH 32.1 PG (29.0-34.0); MCV 100.3 FL (83-99); MEAN PLAT.VOLUME 9.6 uM^3 (9.5-12.4); PLAT.SUFFICIENCY INCREASED; RBC DIS.WIDTH-CV 13.9 % (11.8-14.6); RBC DIS.WIDTH-SD 50.8 % (39-53)
[2016-07-31 06:26] LABS: PLATELET COUNT 395 K/uL (156-360); SEG.NEUTROPHILS 78.9 % (46.0-76.0)
[2016-07-31 09:59] VITALS: BP 129/67
[2016-07-31] MEDS ORDERED: FOLIC ACID1 MG PO (11:49)
[2016-07-31] MEDS ORDERED: AMOX TR-K CLV1 EAC4 PO (11:49)
[2016-07-31] MEDS ORDERED: THERAGRAN1 TABLET PO (11:49)
[2016-07-31] MEDS ORDERED: Thiamine,Vitamin B1 PO (11:49)
[2016-07-31] MEDS ORDERED: DUONEB 2.5-0.5 M3 ML AEROSOL (11:49)
[2016-07-31 13:09] VITALS: BP 126/68
== END 2016-07-31 13:25 | disposition home health service (06) | DRG 917 ==
LOC: EME → EDBD 00:57 → EDOF 04:23 → 4WEST 04:23 → 3EAST 07-28 19:39
PROVIDERS: Anesthesiology; Emergency Medicine; Family Medicine; Family Medicine Sports Medicine; Internal Medicine Critical Care Medicine; Internal Medicine Nephrology
PROC: 0BH17EZ Insertion of Endotracheal Airway into Trachea, Via Natural or Artificial Opening (ICD-10-PCS; principal; 2016-07-18)
PROC: 02HV33Z Insertion of Infusion Device into Superior Vena Cava, Percutaneous Approach (ICD-10-PCS; principal; 2016-07-18)
PROC: 5A1955Z Respiratory Ventilation, Greater than 96 Consecutive Hours (ICD-10-PCS; principal; 2016-07-18)
PROC: 5A12012 Performance of Cardiac Output, Single, Manual (ICD-10-PCS; principal; 2016-07-18)
PROC: 03HY32Z Insertion of Monitoring Device into Upper Artery, Percutaneous Approach (ICD-10-PCS; 2016-07-19)
PROC: 30233N1 Transfusion of Nonautologous Red Blood Cells into Peripheral Vein, Percutaneous Approach (ICD-10-PCS; 2016-07-19)
PROC: 0BH18EZ Insertion of Endotracheal Airway into Trachea, Via Natural or Artificial Opening Endoscopic (ICD-10-PCS; 2016-07-25)
DX: T40.5X1A Poisoning by cocaine, accidental (unintentional), initial encounter (principal); E87.2 Acidosis; E87.6 Hypokalemia; J96.01 Acute respiratory failure with hypoxia; G93.40 Encephalopathy, unspecified; F10.239 Alcohol dependence with withdrawal, unspecified; I49.01 Ventricular fibrillation; K29.00 Acute gastritis without bleeding; N17.9 Acute kidney failure, unspecified; M62.82 Rhabdomyolysis; I46.2 Cardiac arrest due to underlying cardiac condition; J69.0 Pneumonitis due to inhalation of food and vomit; E83.51 Hypocalcemia; F17.210 Nicotine dependence, cigarettes, uncomplicated; Z56.0 Unemployment, unspecified; E87.3 Alkalosis; E86.0 Dehydration; I10 Essential (primary) hypertension; E78.5 Hyperlipidemia, unspecified; Z91.19 Patient's noncompliance with other medical treatment and regimen; R73.03 Prediabetes; E43 Unspecified severe protein-calorie malnutrition; G40.409 Other generalized epilepsy and epileptic syndromes, not intractable, without status epilepticus; F32.9 Major depressive disorder, single episode, unspecified; Z91.81 History of falling
CPT/HCPCS: 36600; 70450; 71010; 71020; 71275; 74000; 74177; 80047; 80048; 80048 91; 80053; 80074; 80202; 81003; 82010; 82150; 82550; 82803; 82810; 82948; 83540; 83605; 83690; 83735; 84100; 84146; 84450; 84460; 84466; 84478; 84484; 84999; 85025; 85027; 85610; 85730; 86703; 86803; 86850; 86900; 86901; 86920; 87040; 87070; 87086; 87205; 87502; 87641; 87801; 92526 GN; 92610 GN; 93005; 93306; 94002; 94003; 94640; 94640 76; 94644; 94760; 94799; 95819; 97530 GO; 97530 GP; 99202; 99281; 99285; C1751; C9113; G0480; J0153; J0282; J0330; J0456; J0610; J1644; J1815; J1940; J2060; J2543; J2704; J2765; J2920; J2930; J3010; J3370; J3411; J3475; J3480; J3486; J7030; J7040; J7050; J7070; J7120; J7512; P9016; P9045; S0028

== ENCOUNTER 2017-05-15 09:10 | Emergency (ER) | payer OTHER ==
[~2017-05-15] VITALS: Ht 162.6 cm; Wt 49.9 kg
[~2017-05-15 09:10] MED LIST changes: +AMOX TR-K CLV1 EAC4 PO; +CLONAZEPAM0.5 MG PO; +DUONEB 2.5-0.5 M3 ML AEROSOL; +FOLIC ACID1 MG PO; +GABAPENTIN100 MG PO; +IBUPROFEN800 MG PO; +LISINOPRIL10 MG PO; +OMEPRAZOLE20 MG PO; +RIZATRIPTAN10 MG PO; +TOPAMAX25 MG PO; +Thiamine,Vitamin B1 PO; +VISTARIL25 MG PO
[2017-05-15 10:46] LABS: HEMOGLOBIN 11.8 G/DL (11.9-15.5); MCH 31.1 PG (29.0-34.0); MCHC 31.9 G/DL (30.0-36.0); MCV 97.4 FL (83-99); PLATELET COUNT 420 K/uL (156-360); RBC DIS.WIDTH-CV 17.2 % (11.8-14.6); RBC DIS.WIDTH-SD 60.8 % (39-53); WHITE BLOOD COUNT 9.6 K/uL (4.1-10.2)
[2017-05-15 10:57] LABS: ALBUMIN 3.6 g/dL (3.2-4.8); CHLORIDE 109 mEq/L (99-109); POTASSIUM 3.3 mEq/L (3.7-5.4); SODIUM 139 mEq/L (136-147)
[2017-05-15 10:59] LABS: GLUCOSE 97 mg/dL (70-99)
[2017-05-15 11:00] LABS: TOTAL PROTEIN 8.4 g/dL (6.4-8.3)
[2017-05-15 11:01] LABS: TOTAL BILIRUBIN 0.1 mg/dL (0.0-1.0)
[2017-05-15 11:03] LABS: ALKALINE PHOSPHATASE 104 IU/L (3-129); CREATININE 0.7 mg/dL (0.6-1.3); GFR ESTIMATE (CALCULATED) > 59 mL/min/
[2017-05-15 11:04] LABS: UREA NITROGEN (BUN) 12 mg/dL (9-23)
[2017-05-15 11:05] LABS: AST (GOT) 36 IU/L (2-34)
[2017-05-15 11:06] LABS: ALT (GPT) 18 IU/L (3-49)
[2017-05-15 11:11] LABS: QUANTITATIVE HCG < 4.0 MIU/ML
[2017-05-15 11:31] LABS: APPEARANCE TURBID ((CLEAR)); COLOR YELLOW ((YELLOW)); LEUKOCYTES LARGE; NITRITE NEGATIVE
[2017-05-15 11:32] LABS: BILIRUBIN NEGATIVE; BLOOD LARGE; GLUCOSE (STRIP) NEGATIVE; KETONES 5; PROTEIN (STRIP) >300; UROBILINOGEN 0.2 MG/DL (0.2-1.0)
[2017-05-15 11:33] LABS: UCUL ADDED? YES; WHITE BLOOD CELLS TNTC /HPF (0-5)
[2017-05-15] MEDS ORDERED: CIPRO500 MG PO (12:11)
[2017-05-15 12:21] VITALS: BP 112/71
== END 2017-05-15 12:23 | disposition home or self-care (01) ==
LOC: EME 09:10
DX: N39.0 Urinary tract infection, site not specified (principal); E87.6 Hypokalemia; B95.1 Streptococcus, group B, as the cause of diseases classified elsewhere; I10 Essential (primary) hypertension; E78.5 Hyperlipidemia, unspecified; F41.9 Anxiety disorder, unspecified; F32.9 Major depressive disorder, single episode, unspecified; F17.200 Nicotine dependence, unspecified, uncomplicated; Z86.011 Personal history of benign neoplasm of the brain; Z98.51 Tubal ligation status
CPT/HCPCS: 71046; 80053; 81003; 84702; 85027; 87077; 87086; 87186; 87502; 87651 90; J7030

== ENCOUNTER 2017-09-09 16:52 | Inpatient (IN) | payer OTHER ==
[~2017-09-09] VITALS: Ht 162.6 cm; Wt 51.6 kg
[~2017-09-09 16:52] MED LIST changes: +CIPRO500 MG PO
[2017-09-09 18:35] LABS: ALBUMIN 3.8 g/dL (3.2-4.8); CHLORIDE 87 mEq/L (99-109); POTASSIUM 2.6 mEq/L (3.7-5.4); SODIUM 124 mEq/L (136-147)
[2017-09-09 18:37] LABS: GLUCOSE 126 mg/dL (70-99); TOTAL PROTEIN 8.8 g/dL (6.4-8.3)
[2017-09-09 18:39] LABS: TOTAL BILIRUBIN 0.8 mg/dL (0.0-1.0)
[2017-09-09 18:40] LABS: SERUM ETHYL ALCOHOL 136 mg/dL
[2017-09-09 18:41] LABS: CREATININE 4.8 mg/dL (0.6-1.3); GFR ESTIMATE (CALCULATED) 11 mL/min/
[2017-09-09 18:42] LABS: ALKALINE PHOSPHATASE 112 IU/L (3-129)
[2017-09-09 18:43] LABS: HEMATOCRIT 27.7 % (36.0-46.0); MCHC 36.1 G/DL (30.0-36.0); MCV 96.9 FL (83-99); NRBC (%) 1.6 /100 WBC (0-0); PLATELET COUNT 179 K/uL (156-360); RBC DIS.WIDTH-CV 14.1 % (11.8-14.6); RED BLOOD COUNT 2.86 M/uL (3.80-5.20); WHITE BLOOD COUNT 13.8 K/uL (4.1-10.2)
[2017-09-09 18:43] LABS: AST (GOT) 30 IU/L (2-34); UREA NITROGEN (BUN) 57 mg/dL (9-23)
[2017-09-09 18:44] LABS: SALICYLATE < 5.0 MG/DL (15-30)
[2017-09-09 18:45] LABS: ACETAMINOPHEN (TYLENOL) < 10 mcg/mL (10-30); ALT (GPT) 15 IU/L (3-49)
[2017-09-09 19:19] LABS: BASOPHIL (%) 0.2 % (0-1); EOSINOPHIL (%) 0.1 % (0-5); IMMATURE GRANULOCYTE (%) 1.9 % (0.0-0.7); LYMPHOCYTE (%) 17.6 % (15-42); LYMPHOCYTE COUNT 2.4 K/uL (1.0-2.8); MONOCYTE COUNT 1.7 K/uL (0-0.8); NEUTROPHIL (%) 68.2 % (45-76); NEUTROPHIL COUNT 9.5 K/uL (1.8-6.4)
[2017-09-09 19:20] LABS: FOLIC ACID (FOLATE) 4.1 NG/ML (5.0-22.0)
[2017-09-09 23:45] VITALS: BP 97/59
[2017-09-10] VITALS (26 sets, daily range): BP systolic 86–109; BP diastolic 49–73
[2017-09-10 01:07] LABS: BICARBONATE 11.7 mEq/L (22-26); METHEMOGLOBIN 1.3 % (0-1.5); PCO2 25 mm Hg (35-45); PO2 168 mm Hg (80-100)
[2017-09-10 01:08] LABS: BASE EXCESS -13.7 mEq/L (-3 to +3); COMMENTS - BLOOD GASES C+A+; DEVICE NC; O2 FLOW 4 L/MIN; SITE RR; pH 7.28 (7.35-7.45)
[2017-09-10 01:12] LABS: POTASSIUM 3.1 mEq/L (3.7-5.4); SODIUM 129 mEq/L (136-147)
[2017-09-10 01:13] LABS: MAGNESIUM 1.5 mg/dL (1.3-2.7)
[2017-09-10 01:14] LABS: GLUCOSE 102 mg/dL (70-99)
[2017-09-10 01:15] LABS: CHLORIDE 107 mEq/L (99-109)
[2017-09-10 01:18] LABS: GFR ESTIMATE (CALCULATED) 25 mL/min/
[2017-09-10 01:19] LABS: CREATININE 2.3 mg/dL (0.6-1.3); UREA NITROGEN (BUN) 48 mg/dL (9-23)
[2017-09-10 05:36] LABS: HEMATOCRIT 23.9 % (36.0-46.0); HEMOGLOBIN 8.1 G/DL (11.9-15.5); MCH 33.8 PG (29.0-34.0); MCHC 33.9 G/DL (30.0-36.0); MCV 99.6 FL (83-99); NRBC (%) 1.7 /100 WBC (0-0); PLATELET COUNT 153 K/uL (156-360); RBC DIS.WIDTH-CV 14.3 % (11.8-14.6); RBC DIS.WIDTH-SD 52.8 % (39-53); WHITE BLOOD COUNT 6.3 K/uL (4.1-10.2)
[2017-09-10 06:03] LABS: CHLORIDE 102 MEQ/L (99-109); CREATININE 2.3 MG/DL (0.6-1.3); GFR ESTIMATE (CALCULATED) 25 mL/min/; GLUCOSE 103 mg/dL (70-99); POTASSIUM 2.6 MEQ/L (3.7-5.4); SODIUM 130 MEQ/L (136-147); UREA NITROGEN (BUN) 52 mg/dL (9-23)
[2017-09-10] MEDS ORDERED: LISINOPRIL10 MG PO (13:10)
[2017-09-10] MEDS ORDERED: GEMFIBROZIL600 MG PO (13:10)
[2017-09-10] MEDS ORDERED: CLONAZEPAM0.5 MG PO (13:10)
[2017-09-10] MEDS ORDERED: PRILOSEC20 MG PO (13:11)
[2017-09-10] MEDS ORDERED: FOLIC ACID1 MG PO (13:12)
[2017-09-10] MEDS ORDERED: DAILY VALUE1 EACH PO (13:12)
[2017-09-10] MEDS ORDERED: SUMATRIPTAN SU100 MG PO (13:14)
[2017-09-10] MEDS ORDERED: SUMATRIPTA6 MG/0.5 M SC (13:15)
[2017-09-10] MEDS ORDERED: NORTRIPTYLINE H25 MG PO (13:16)
[2017-09-10] MEDS ORDERED: ERGOCALCIF50000 UNIT PO (13:17)
[2017-09-10 14:55] LABS: CHLORIDE 101 MEQ/L (99-109); GLUCOSE 104 mg/dL (70-99); SODIUM 128 MEQ/L (136-147); UREA NITROGEN (BUN) 49 mg/dL (9-23)
[2017-09-10 14:57] LABS: CREATININE 1.1 MG/DL (0.6-1.3); GFR ESTIMATE (CALCULATED) 58 mL/min/; POTASSIUM 3.4 MEQ/L (3.7-5.4)
[2017-09-11] VITALS (23 sets, daily range): BP systolic 79–119; BP diastolic 49–80
[2017-09-11 05:43] LABS: CHLORIDE 99 MEQ/L (99-109); GFR ESTIMATE (CALCULATED) > 59 mL/min/; GLUCOSE 104 mg/dL (70-99); POTASSIUM 3.1 MEQ/L (3.7-5.4); SODIUM 130 MEQ/L (136-147); UREA NITROGEN (BUN) 40 mg/dL (9-23)
[2017-09-11 05:44] LABS: MAGNESIUM 2.4 mg/dl (1.3-2.7)
[2017-09-11 05:54] LABS: CREATININE 0.6 MG/DL (0.6-1.3)
[2017-09-11 05:55] LABS: PHOSPHORUS < 1.0 mg/dL (2.5-4.9)
[2017-09-12] VITALS (14 sets, daily range): BP systolic 80–107; BP diastolic 54–82
[2017-09-12 17:17] LABS: HEMATOCRIT 28.9 % (36.0-46.0); HEMOGLOBIN 9.9 G/DL (11.9-15.5); MCH 34.7 PG (29.0-34.0); MCHC 34.3 G/DL (30.0-36.0); MCV 101.4 FL (83-99); RBC DIS.WIDTH-CV 15.1 % (11.8-14.6); RBC DIS.WIDTH-SD 56.5 % (39-53); RED BLOOD COUNT 2.85 M/uL (3.80-5.20); WHITE BLOOD COUNT 9.6 K/uL (4.1-10.2)
[2017-09-12 17:34] LABS: ALBUMIN 2.7 G/DL (3.2-4.8); ALKALINE PHOSPHATASE 111 IU/L (3-129); ALT (GPT) 41 IU/L (3-49); AST (GOT) 115 IU/L (2-34); CHLORIDE 102 MEQ/L (99-109); CREATININE 0.5 MG/DL (0.6-1.3); GFR ESTIMATE (CALCULATED) > 59 mL/min/; GLUCOSE 85 mg/dL (70-99); SODIUM 134 MEQ/L (136-147); TOTAL BILIRUBIN 0.4 MG/DL (0.0-1.0); TOTAL PROTEIN 6.4 G/DL (6.4-8.3)
[2017-09-12 17:37] LABS: ABS NEUTROPHIL COUNT 4.4; ANISOCYTOSIS 2+; BASOPHILS 0.9 %; EOSINOPHIL ABS CT 0.1; EOSINOPHILS 0.9 % (0-5.0); HEMATOLOGY COMMENT 1 SN; HYPOCHROMASIA 2+; LYMPHOCYTES 31.6 % (15.0-45.0); MACROCYTES 2+; METAMYELOCYTES 4.4 %; MICROCYTOSIS 1+; MONOCYTES 13.1 % (0-9.0); MYELOCYTES 3.5 %; NUCLEATED RBC'S 2.6; PLAT.SUFFICIENCY ADEQUATE; PLATELET COUNT UNABLE TO REPORT K/uL (156-360); POLYCHROMASIA 1+; SEG.NEUTROPHILS 45.6 % (46.0-76.0); SPHEROCYTES 1+; TARGET CELLS 1+
[2017-09-12 17:41] LABS: MAGNESIUM 1.5 mg/dl (1.3-2.7); POTASSIUM 4.6 MEQ/L (3.7-5.4); UREA NITROGEN (BUN) 17 mg/dL (9-23)
[2017-09-13 06:00] LABS: HEMATOCRIT 21.1 % (36.0-46.0); MCH 33.8 PG (29.0-34.0); MCHC 33.2 G/DL (30.0-36.0); MCV 101.9 FL (83-99); NRBC (%) 0.9 /100 WBC (0-0); PLATELET COUNT 245 K/uL (156-360); RBC DIS.WIDTH-CV 15.4 % (11.8-14.6); RBC DIS.WIDTH-SD 56.6 % (39-53); WHITE BLOOD COUNT 10.9 K/uL (4.1-10.2)
[2017-09-13 06:04] LABS: RED BLOOD COUNT 2.07 M/uL (3.80-5.20)
[2017-09-13 06:28] LABS: ABS NEUTROPHIL COUNT 8.2; ANISOCYTOSIS 2+; BAND NEUTROPHILS 0.8 % (0-8.0); EOSINOPHIL ABS CT 0; HYPOCHROMASIA 1+; MACROCYTES 1+; METAMYELOCYTES 0.9 %; MONOCYTES 8.7 % (0-9.0); MYELOCYTES 3.5 %; PLAT.SUFFICIENCY ADEQUATE; POLYCHROMASIA 1+; TOX.VACUOLIZATION 2+; TOXIC GRANULATION 1+
[2017-09-13 06:30] LABS: ALBUMIN 2.1 G/DL (3.2-4.8); ALKALINE PHOSPHATASE 85 IU/L (3-129); ALT (GPT) 30 IU/L (3-49); AST (GOT) 69 IU/L (2-34); CHLORIDE 107 MEQ/L (99-109); CREATININE 0.3 MG/DL (0.6-1.3); GFR ESTIMATE (CALCULATED) > 59 mL/min/; GLUCOSE 89 mg/dL (70-99); LYMPHOCYTES 11.3 % (15.0-45.0); POTASSIUM 4.5 MEQ/L (3.7-5.4); SEG.NEUTROPHILS 74.8 % (46.0-76.0); SODIUM 134 MEQ/L (136-147); TOTAL BILIRUBIN 0.3 MG/DL (0.0-1.0); TOTAL PROTEIN 4.6 G/DL (6.4-8.3); UREA NITROGEN (BUN) 10 mg/dL (9-23)
[2017-09-13 07:58] VITALS: BP 114/60
[2017-09-13 15:20] VITALS: BP 121/63
[2017-09-13 19:19] VITALS: BP 104/75
[2017-09-14] VITALS (14 sets, daily range): BP systolic 110–130; BP diastolic 60–80
[2017-09-14 00:22] LABS: C DIFF TOXIN POSITIVE (NEGATIVE)
[2017-09-14 00:31] LABS: STOOL OCCULT BLD 1ST SPECIMEN NEGATIVE
[2017-09-14 07:16] LABS: BASOPHIL (%) 0.2 % (0-1); EOSINOPHIL (%) 0.4 % (0-5); HEMATOCRIT 21.5 % (36.0-46.0); HEMOGLOBIN 7.4 G/DL (11.9-15.5); IMMATURE GRANULOCYTE (%) 3.3 % (0.0-0.7); LYMPHOCYTE (%) 23.9 % (15-42); LYMPHOCYTE COUNT 2.6 K/uL (1.0-2.8); MCH 34.4 PG (29.0-34.0); MCHC 34.4 G/DL (30.0-36.0); MONOCYTE (%) 13.7 % (3-12); MONOCYTE COUNT 1.5 K/uL (0-0.8); NEUTROPHIL (%) 58.5 % (45-76); NEUTROPHIL COUNT 6.4 K/uL (1.8-6.4); NRBC (%) 0.6 /100 WBC (0-0); PLATELET COUNT 230 K/uL (156-360); RBC DIS.WIDTH-CV 15.3 % (11.8-14.6); RBC DIS.WIDTH-SD 55.9 % (39-53); RED BLOOD COUNT 2.15 M/uL (3.80-5.20); WHITE BLOOD COUNT 10.9 K/uL (4.1-10.2)
[2017-09-14 09:07] LABS: CHLORIDE 104 MEQ/L (99-109); CREATININE 0.4 MG/DL (0.6-1.3); GFR ESTIMATE (CALCULATED) > 59 mL/min/; GLUCOSE 83 mg/dL (70-99); IRON 18 MCG/DL (35-150); POTASSIUM 3.6 MEQ/L (3.7-5.4); SODIUM 132 MEQ/L (136-147); THYROTROPIN (TSH) 3.8 MIU/L (0.4-5.5); TRANSFERRIN (TIBC) 107.9 mg/dL (215-380); TRANSFERRIN SATUR. 17 % (20-55); UREA NITROGEN (BUN) 6 mg/dL (9-23)
[2017-09-14 09:08] LABS: FOLIC ACID (FOLATE) 12.2 NG/ML (5.0-22.0)
[2017-09-15 00:43] VITALS: BP 102/90
[2017-09-15 04:42] VITALS: BP 110/72
[2017-09-15 06:33] LABS: BASOPHIL (%) 0.3 % (0-1); EOSINOPHIL (%) 0.6 % (0-5); EOSINOPHIL COUNT 0.1 K/uL (0-0.3); HEMATOCRIT 30.8 % (36.0-46.0); IMMATURE GRANULOCYTE (%) 1.6 % (0.0-0.7); LYMPHOCYTE (%) 20.1 % (15-42); MCH 32.5 PG (29.0-34.0); MCHC 34.7 G/DL (30.0-36.0); MONOCYTE (%) 11.9 % (3-12); MONOCYTE COUNT 1.2 K/uL (0-0.8); NEUTROPHIL (%) 65.5 % (45-76); NEUTROPHIL COUNT 6.6 K/uL (1.8-6.4); NRBC (%) 0.4 /100 WBC (0-0); PLATELET COUNT 201 K/uL (156-360); RBC DIS.WIDTH-CV 16.4 % (11.8-14.6); RBC DIS.WIDTH-SD 56.3 % (39-53); WHITE BLOOD COUNT 10.1 K/uL (4.1-10.2)
[2017-09-15 06:34] LABS: HEMOGLOBIN 10.7 G/DL (11.9-15.5); MCV 93.6 FL (83-99); RED BLOOD COUNT 3.29 M/uL (3.80-5.20)
[2017-09-15 06:42] LABS: CHLORIDE 104 MEQ/L (99-109); CREATININE 0.4 MG/DL (0.6-1.3); GFR ESTIMATE (CALCULATED) > 59 mL/min/; GLUCOSE 97 mg/dL (70-99); POTASSIUM 3.6 MEQ/L (3.7-5.4); SODIUM 136 MEQ/L (136-147); UREA NITROGEN (BUN) 8 mg/dL (9-23)
[2017-09-15 08:01] LABS: APPEARANCE SL.HAZY ((CLEAR)); BILIRUBIN NEGATIVE; BLOOD NEGATIVE; COLOR YELLOW ((YELLOW)); GLUCOSE (STRIP) 50; KETONES NEGATIVE; LEUKOCYTES LARGE; NITRITE NEGATIVE; PROTEIN (STRIP) NEGATIVE; SPECIFIC GRAVITY 1.015 (1.000-1.030); UROBILINOGEN 0.2 MG/DL (0.2-1.0)
[2017-09-15 08:07] LABS: BACTERIA RARE /HPF; EPITHELIAL CELLS RARE /HPF; MUCUS TRACE /LPF; WHITE BLOOD CELLS TNTC /HPF (0-5)
[2017-09-15 11:07] VITALS: BP 112/72
[2017-09-15 23:33] VITALS: BP 140/90
[2017-09-16 06:01] LABS: BASOPHIL (%) 0.4 % (0-1); EOSINOPHIL (%) 0.7 % (0-5); EOSINOPHIL COUNT 0.1 K/uL (0-0.3); HEMATOCRIT 28.5 % (36.0-46.0); HEMOGLOBIN 9.8 G/DL (11.9-15.5); IMMATURE GRANULOCYTE (%) 0.9 % (0.0-0.7); LYMPHOCYTE (%) 24.8 % (15-42); LYMPHOCYTE COUNT 1.9 K/uL (1.0-2.8); MCH 32.6 PG (29.0-34.0); MCHC 34.4 G/DL (30.0-36.0); MCV 94.7 FL (83-99); MONOCYTE (%) 10.5 % (3-12); MONOCYTE COUNT 0.8 K/uL (0-0.8); NEUTROPHIL (%) 62.7 % (45-76); NEUTROPHIL COUNT 4.8 K/uL (1.8-6.4); NRBC (%) 0.3 /100 WBC (0-0); PLATELET COUNT 194 K/uL (156-360); RBC DIS.WIDTH-CV 16.8 % (11.8-14.6); RBC DIS.WIDTH-SD 59.1 % (39-53); RED BLOOD COUNT 3.01 M/uL (3.80-5.20); WHITE BLOOD COUNT 7.6 K/uL (4.1-10.2)
[2017-09-16 06:38] LABS: CHLORIDE 108 MEQ/L (99-109); CREATININE 0.4 MG/DL (0.6-1.3); GFR ESTIMATE (CALCULATED) > 59 mL/min/; GLUCOSE 90 mg/dL (70-99); POTASSIUM 3.4 MEQ/L (3.7-5.4); SODIUM 137 MEQ/L (136-147); UREA NITROGEN (BUN) 7 mg/dL (9-23)
[2017-09-16 08:12] VITALS: BP 131/88
[2017-09-16 11:42] VITALS: BP 134/86
[2017-09-16 15:44] VITALS: BP 140/98
[2017-09-16 19:22] VITALS: BP 129/70
[2017-09-16 23:17] VITALS: BP 121/77
[2017-09-17 03:21] LABS: BASOPHIL (%) 0.7 % (0-1); BASOPHIL COUNT 0.1 K/uL (0-0.1); EOSINOPHIL (%) 1.4 % (0-5); EOSINOPHIL COUNT 0.1 K/uL (0-0.3); HEMATOCRIT 31.4 % (36.0-46.0); HEMOGLOBIN 10.8 G/DL (11.9-15.5); IMMATURE GRANULOCYTE (%) 0.7 % (0.0-0.7); LYMPHOCYTE (%) 23.3 % (15-42); LYMPHOCYTE COUNT 1.8 K/uL (1.0-2.8); MCH 33.1 PG (29.0-34.0); MCHC 34.4 G/DL (30.0-36.0); MCV 96.3 FL (83-99); MONOCYTE (%) 10.9 % (3-12); MONOCYTE COUNT 0.8 K/uL (0-0.8); NEUTROPHIL COUNT 4.8 K/uL (1.8-6.4); PLATELET COUNT 211 K/uL (156-360); RBC DIS.WIDTH-CV 16.5 % (11.8-14.6); RBC DIS.WIDTH-SD 57.9 % (39-53); RED BLOOD COUNT 3.26 M/uL (3.80-5.20); WHITE BLOOD COUNT 7.6 K/uL (4.1-10.2)
[2017-09-17 03:32] LABS: CHLORIDE 112 mEq/L (99-109); POTASSIUM 3.9 mEq/L (3.7-5.4); SODIUM 139 mEq/L (136-147)
[2017-09-17 03:34] LABS: GLUCOSE 80 mg/dL (70-99)
[2017-09-17 03:38] LABS: CREATININE 0.6 mg/dL (0.6-1.3); GFR ESTIMATE (CALCULATED) > 59 mL/min/; UREA NITROGEN (BUN) 9 mg/dL (9-23)
[2017-09-17 04:30] VITALS: BP 149/88
[2017-09-17 08:16] VITALS: BP 120/68
[2017-09-17 10:39] VITALS: BP 112/69
[2017-09-17 15:39] VITALS: BP 135/90
[2017-09-17 19:27] VITALS: BP 135/86
[2017-09-17 23:25] VITALS: BP 128/75
[2017-09-18 04:20] VITALS: BP 113/66
[2017-09-18 08:00] VITALS: BP 122/68
[2017-09-18 11:48] VITALS: BP 142/72
[2017-09-18 15:37] VITALS: BP 142/86
[2017-09-18 19:47] VITALS: BP 130/65
[2017-09-18 23:34] VITALS: BP 138/65
[2017-09-19 04:51] VITALS: BP 128/75
[2017-09-19 06:43] LABS: BASOPHIL (%) 0.6 % (0-1); EOSINOPHIL (%) 1.1 % (0-5); EOSINOPHIL COUNT 0.1 K/uL (0-0.3); HEMATOCRIT 29.9 % (36.0-46.0); HEMOGLOBIN 9.7 G/DL (11.9-15.5); IMMATURE GRANULOCYTE (%) 0.5 % (0.0-0.7); LYMPHOCYTE (%) 27.7 % (15-42); LYMPHOCYTE COUNT 1.7 K/uL (1.0-2.8); MCH 32.3 PG (29.0-34.0); MCHC 32.4 G/DL (30.0-36.0); MCV 99.7 FL (83-99); MONOCYTE (%) 10.1 % (3-12); MONOCYTE COUNT 0.6 K/uL (0-0.8); NEUTROPHIL COUNT 3.7 K/uL (1.8-6.4); PLATELET COUNT 208 K/uL (156-360); RBC DIS.WIDTH-CV 15.9 % (11.8-14.6); RBC DIS.WIDTH-SD 58.9 % (39-53); WHITE BLOOD COUNT 6.2 K/uL (4.1-10.2)
[2017-09-19 07:17] LABS: CHLORIDE 118 MEQ/L (99-109); CREATININE 0.8 MG/DL (0.6-1.3); GFR ESTIMATE (CALCULATED) > 59 mL/min/; GLUCOSE 90 mg/dL (70-99); POTASSIUM 4.3 MEQ/L (3.7-5.4); SODIUM 140 MEQ/L (136-147); UREA NITROGEN (BUN) 10 mg/dL (9-23)
[2017-09-19 08:42] VITALS: BP 130/64
[2017-09-19 17:52] VITALS: BP 142/81
[2017-09-19] MEDS ORDERED: DUONEB 2.5-0.5 M3 ML AEROSOL (19:50)
[2017-09-19] MEDS ORDERED: FERROUS SULFAT325 MG PO (19:51)
[2017-09-19] MEDS ORDERED: TYLENOL REGULA325 MG PO (19:51)
[2017-09-19] MEDS ORDERED: NICOTINE PATCH1 EAC1 TD (19:51)
[2017-09-19] MEDS ORDERED: Tums,OsCal PO (19:53)
[2017-09-19] MEDS ORDERED: FAMOTIDINE20 MG PO (19:53)
[2017-09-19] MEDS ORDERED: K-DUR20 MEQ PO (19:53)
[2017-09-19] MEDS ORDERED: DISULFIRAM250 MG PO (19:54)
[2017-09-19] MEDS ORDERED: VANCOCIN HCL125 MG PO (19:57)
[2017-09-19 23:50] VITALS: BP 129/76
[2017-09-20 07:52] VITALS: BP 130/80
[2017-09-20 15:27] VITALS: BP 130/80
== END 2017-09-20 21:05 | DRG 642 ==
LOC: EME 16:52 → 4WEST 22:45 → EDOF 22:45 → ENRESERV 22:51 → 4WEST 23:39 → CANRESERV 09-12 10:53 → ENRESERV 09-12 10:53 → 3EAST 09-12 14:00
PROVIDERS: Emergency Medicine; Family Medicine; Family Medicine Sports Medicine; Internal Medicine Critical Care Medicine; Surgery
PROC: 30233N1 Transfusion of Nonautologous Red Blood Cells into Peripheral Vein, Percutaneous Approach (ICD-10-PCS; principal; 2017-09-14)
PROC: HZ2ZZZZ Detoxification Services for Substance Abuse Treatment (ICD-10-PCS; 2017-09-17)
DX: E83.39 Other disorders of phosphorus metabolism (principal); E86.0 Dehydration; E87.6 Hypokalemia; E87.1 Hypo-osmolality and hyponatremia; D69.6 Thrombocytopenia, unspecified; D64.9 Anemia, unspecified; F10.231 Alcohol dependence with withdrawal delirium; E87.2 Acidosis; N17.9 Acute kidney failure, unspecified; F14.10 Cocaine abuse, uncomplicated; E83.42 Hypomagnesemia; I10 Essential (primary) hypertension; E78.5 Hyperlipidemia, unspecified; E07.9 Disorder of thyroid, unspecified; F32.9 Major depressive disorder, single episode, unspecified; F17.210 Nicotine dependence, cigarettes, uncomplicated; A04.72 Enterocolitis due to Clostridium difficile, not specified as recurrent; G93.89 Other specified disorders of brain; G43.909 Migraine, unspecified, not intractable, without status migrainosus; G89.29 Other chronic pain; F41.9 Anxiety disorder, unspecified; G62.9 Polyneuropathy, unspecified; Y90.6 Blood alcohol level of 120-199 mg/100 ml; Z68.1 Body mass index [BMI] 19.9 or less, adult
CPT/HCPCS: 36600; 70450; 71046; 74230; 80048; 80048 91; 80053; 80202; 81003; 82140; 82272; 82607; 82693 90; 82746; 82803; 83540; 83605; 83735; 83930; 83935; 84100; 84425 90; 84443; 84466; 85025; 85027; 85610; 86850; 86900; 86901; 86920; 87040; 87070; 87086; 87205; 87493; 87641; 92611 GN; 94640; 94640 76; 94799; 97530 GP; 99202; 99281; 99285; G0480; J0610; J1644; J1940; J2060; J2543; J3370; J3411; J3475; J3480; J7030; J7040; J7042; J7050; J7070; P9016; S0028

== ENCOUNTER 2017-10-31 22:12 | Inpatient (IN) | payer OTHER ==
[~2017-10-31] VITALS: Ht 157.5 cm; Wt 41.5 kg
[~2017-10-31 22:12] MED LIST changes: +DAILY VALUE1 EACH PO; +DISULFIRAM250 MG PO; +ERGOCALCIF50000 UNIT PO; +FAMOTIDINE20 MG PO; +FERROUS SULFAT325 MG PO; +K-DUR20 MEQ PO; +NICOTINE PATCH1 EAC1 TD; +NORTRIPTYLINE H25 MG PO; +PRILOSEC20 MG PO; +SUMATRIPTA6 MG/0.5 M SC; +SUMATRIPTAN SU100 MG PO; +TYLENOL REGULA325 MG PO; +Tums,OsCal PO; +VANCOCIN HCL125 MG PO
[2017-11-01] VITALS (8 sets, daily range): BP systolic 92–118; BP diastolic 56–75
[2017-11-01 00:39] LABS: HEMOGLOBIN 9.5 G/DL (11.9-15.5); MCH 31.9 PG (29.0-34.0); MCHC 33.9 G/DL (30.0-36.0); PLATELET COUNT 379 K/uL (156-360); RBC DIS.WIDTH-CV 17.8 % (11.8-14.6); RBC DIS.WIDTH-SD 60.5 % (39-53); RED BLOOD COUNT 2.98 M/uL (3.80-5.20); WHITE BLOOD COUNT 9.2 K/uL (4.1-10.2)
[2017-11-01 00:51] LABS: ALBUMIN 2.9 g/dL (3.2-4.8); CHLORIDE 105 mEq/L (99-109); POTASSIUM 2.6 mEq/L (3.7-5.4); SODIUM 137 mEq/L (136-147)
[2017-11-01 00:53] LABS: GLUCOSE 95 mg/dL (70-99); TOTAL PROTEIN 7.1 g/dL (6.4-8.3)
[2017-11-01 00:55] LABS: TOTAL BILIRUBIN 0.3 mg/dL (0.0-1.0)
[2017-11-01 00:56] LABS: SERUM ETHYL ALCOHOL < 10 mg/dL
[2017-11-01 00:57] LABS: ALKALINE PHOSPHATASE 197 IU/L (3-129); CREATININE 0.7 mg/dL (0.6-1.3); GFR ESTIMATE (CALCULATED) > 59 mL/min/
[2017-11-01 00:58] LABS: UREA NITROGEN (BUN) 16 mg/dL (9-23)
[2017-11-01 00:59] LABS: AST (GOT) 34 IU/L (2-34)
[2017-11-01 01:00] LABS: ALT (GPT) 42 IU/L (3-49); LIPASE 581 U/L (1.0-51.0)
[2017-11-01 03:32] LABS: INTER. NORMALIZED RATIO 1.3
[2017-11-01 03:35] LABS: PTT 27.4 SEC (25-37)
[2017-11-01 09:06] LABS: BASOPHIL (%) 0.3 % (0-1); EOSINOPHIL (%) 1.5 % (0-5); EOSINOPHIL COUNT 0.1 K/uL (0-0.3); HEMATOCRIT 24.5 % (36.0-46.0); HEMOGLOBIN 8.1 G/DL (11.9-15.5); IMMATURE GRANULOCYTE (%) 0.3 % (0.0-0.7); LYMPHOCYTE (%) 44.6 % (15-42); LYMPHOCYTE COUNT 2.6 K/uL (1.0-2.8); MCH 31.5 PG (29.0-34.0); MCHC 33.1 G/DL (30.0-36.0); MCV 95.3 FL (83-99); MONOCYTE (%) 7.9 % (3-12); MONOCYTE COUNT 0.5 K/uL (0-0.8); NEUTROPHIL (%) 45.4 % (45-76); NEUTROPHIL COUNT 2.7 K/uL (1.8-6.4); PLATELET COUNT 319 K/uL (156-360); RBC DIS.WIDTH-CV 18.2 % (11.8-14.6); RBC DIS.WIDTH-SD 62.1 % (39-53); RED BLOOD COUNT 2.57 M/uL (3.80-5.20); WHITE BLOOD COUNT 5.9 K/uL (4.1-10.2)
[2017-11-01 10:08] LABS: CHLORIDE 109 MEQ/L (99-109); CREATININE 0.4 MG/DL (0.6-1.3); GFR ESTIMATE (CALCULATED) > 59 mL/min/; GLUCOSE 85 mg/dL (70-99); LIPASE 358 U/L (1.0-51.0); SODIUM 136 MEQ/L (136-147); UREA NITROGEN (BUN) 12 mg/dL (9-23)
[2017-11-01 10:11] LABS: POTASSIUM 3.2 MEQ/L (3.7-5.4)
[2017-11-01] MEDS ORDERED: LISINOPRIL10 MG PO (11:38)
[2017-11-01] MEDS ORDERED: SUMATRIPTA6 MG/0.5 M IM/SC (11:38)
[2017-11-01 17:42] LABS: APPEARANCE CLOUDY ((CLEAR)); BILIRUBIN NEGATIVE; BLOOD SMALL; COLOR AMBER ((YELLOW)); GLUCOSE (STRIP) NEGATIVE; KETONES 5; LEUKOCYTES LARGE; NITRITE NEGATIVE; PROTEIN (STRIP) 30; SPECIFIC GRAVITY 1.039 (1.000-1.030); UROBILINOGEN 0.2 MG/DL (0.2-1.0)
[2017-11-01 18:05] LABS: BACTERIA 1+ /HPF; EPITHELIAL CELLS 1+ /HPF; MUCUS RARE /LPF; OTHER TRICHOMONAS; RED BLOOD CELLS 0-5 /HPF (0-5); UCUL ADDED? YES; WHITE BLOOD CELLS 40-50 /HPF (0-5)
[2017-11-02 03:20] VITALS: BP 104/60
[2017-11-02 07:14] LABS: BASOPHIL (%) 0.4 % (0-1); EOSINOPHIL COUNT 0.1 K/uL (0-0.3); HEMATOCRIT 28.4 % (36.0-46.0); HEMOGLOBIN 9.2 G/DL (11.9-15.5); IMMATURE GRANULOCYTE (%) 0.3 % (0.0-0.7); LYMPHOCYTE (%) 48.1 % (15-42); LYMPHOCYTE COUNT 3.3 K/uL (1.0-2.8); MCH 31.6 PG (29.0-34.0); MCHC 32.4 G/DL (30.0-36.0); MCV 97.6 FL (83-99); MONOCYTE (%) 7.4 % (3-12); MONOCYTE COUNT 0.5 K/uL (0-0.8); NEUTROPHIL (%) 41.8 % (45-76); NEUTROPHIL COUNT 2.9 K/uL (1.8-6.4); PLATELET COUNT 376 K/uL (156-360); RBC DIS.WIDTH-SD 66.2 % (39-53); RED BLOOD COUNT 2.91 M/uL (3.80-5.20); WHITE BLOOD COUNT 6.9 K/uL (4.1-10.2)
[2017-11-02 07:41] LABS: ALBUMIN 2.1 G/DL (3.2-4.8); ALKALINE PHOSPHATASE 120 IU/L (3-129); ALT (GPT) 23 IU/L (3-49); AST (GOT) 21 IU/L (2-34); CHLORIDE 114 MEQ/L (99-109); CREATININE 0.5 MG/DL (0.6-1.3); GFR ESTIMATE (CALCULATED) > 59 mL/min/; GLUCOSE 84 mg/dL (70-99); POTASSIUM 5.5 MEQ/L (3.7-5.4); SODIUM 140 MEQ/L (136-147); TOTAL BILIRUBIN 0.5 MG/DL (0.0-1.0); TOTAL PROTEIN 5.3 G/DL (6.4-8.3); UREA NITROGEN (BUN) 7 mg/dL (9-23)
[2017-11-02 07:55] LABS: CHLORIDE 114 MEQ/L (99-109); CREATININE 0.5 MG/DL (0.6-1.3); GFR ESTIMATE (CALCULATED) > 59 mL/min/; GLUCOSE 84 mg/dL (70-99); LIPASE 332 U/L (1.0-51.0); POTASSIUM 5.6 MEQ/L (3.7-5.4); SODIUM 140 MEQ/L (136-147); UREA NITROGEN (BUN) 7 mg/dL (9-23)
[2017-11-02 08:18] VITALS: BP 111/77
[2017-11-02 12:01] VITALS: BP 109/76
[2017-11-02 16:27] VITALS: BP 108/74
[2017-11-02 20:03] VITALS: BP 123/85
[2017-11-02 23:48] VITALS: BP 119/76
[2017-11-03 06:12] LABS: BASOPHIL (%) 0.3 % (0-1); EOSINOPHIL COUNT 0.1 K/uL (0-0.3); HEMATOCRIT 24.1 % (36.0-46.0); HEMOGLOBIN 7.8 G/DL (11.9-15.5); IMMATURE GRANULOCYTE (%) 0.2 % (0.0-0.7); LYMPHOCYTE (%) 46.7 % (15-42); LYMPHOCYTE COUNT 2.8 K/uL (1.0-2.8); MCH 31.7 PG (29.0-34.0); MCHC 32.4 G/DL (30.0-36.0); MONOCYTE (%) 8.2 % (3-12); MONOCYTE COUNT 0.5 K/uL (0-0.8); NEUTROPHIL (%) 42.6 % (45-76); NEUTROPHIL COUNT 2.5 K/uL (1.8-6.4); PLATELET COUNT 310 K/uL (156-360); RBC DIS.WIDTH-CV 18.7 % (11.8-14.6); RED BLOOD COUNT 2.46 M/uL (3.80-5.20)
[2017-11-03 06:39] LABS: CHLORIDE 108 MEQ/L (99-109); CREATININE 0.4 MG/DL (0.6-1.3); GFR ESTIMATE (CALCULATED) > 59 mL/min/; GLUCOSE 88 mg/dL (70-99); LIPASE 571 U/L (1.0-51.0); POTASSIUM 4.5 MEQ/L (3.7-5.4); SODIUM 135 MEQ/L (136-147); UREA NITROGEN (BUN) 4 mg/dL (9-23)
[2017-11-03 07:00] VITALS: BP 110/77
[2017-11-03] MEDS ORDERED: PAIN RELIEF325 M1 PO (16:35)
[2017-11-03] MEDS ORDERED: LOPID600 MG PO (16:36)
[2017-11-03] MEDS ORDERED: KLOR-CON M2020 MEQ PO (16:40)
[2017-11-03] MEDS ORDERED: TUMS500 MG PO (16:41)
[2017-11-03] MEDS ORDERED: ANTABUSE250 MG PO (16:42)
[2017-11-03] MEDS ORDERED: SUMATRIPTA6 MG/0.5 M SC (16:44)
[2017-11-03] MEDS ORDERED: CLOBETASOL PROP60 G1 TP (16:46)
[2017-11-03] MEDS ORDERED: IBUPROFEN200 M1 PO (16:48)
[2017-11-03 16:50] VITALS: BP 110/77
[2017-11-04 00:29] VITALS: BP 125/75
[2017-11-04 06:11] LABS: BASOPHIL (%) 0.4 % (0-1); EOSINOPHIL (%) 2.9 % (0-5); EOSINOPHIL COUNT 0.2 K/uL (0-0.3); HEMATOCRIT 25.8 % (36.0-46.0); HEMOGLOBIN 8.3 G/DL (11.9-15.5); IMMATURE GRANULOCYTE (%) 0.2 % (0.0-0.7); LYMPHOCYTE (%) 52.3 % (15-42); LYMPHOCYTE COUNT 2.7 K/uL (1.0-2.8); MCH 31.2 PG (29.0-34.0); MCHC 32.2 G/DL (30.0-36.0); MONOCYTE (%) 9.7 % (3-12); MONOCYTE COUNT 0.5 K/uL (0-0.8); NEUTROPHIL (%) 34.5 % (45-76); NEUTROPHIL COUNT 1.8 K/uL (1.8-6.4); PLATELET COUNT 298 K/uL (156-360); RBC DIS.WIDTH-CV 18.1 % (11.8-14.6); RBC DIS.WIDTH-SD 64.9 % (39-53); RED BLOOD COUNT 2.66 M/uL (3.80-5.20); WHITE BLOOD COUNT 5.2 K/uL (4.1-10.2)
[2017-11-04 06:38] LABS: CHLORIDE 107 MEQ/L (99-109); CREATININE 0.4 MG/DL (0.6-1.3); GFR ESTIMATE (CALCULATED) > 59 mL/min/; GLUCOSE 90 mg/dL (70-99); IRON 53 MCG/DL (35-150); POTASSIUM 3.9 MEQ/L (3.7-5.4); SODIUM 136 MEQ/L (136-147); TRANSFERRIN (TIBC) 84.8 mg/dL (215-380); TRANSFERRIN SATUR. 63 % (20-55); UREA NITROGEN (BUN) 3 mg/dL (9-23)
[2017-11-04 07:36] LABS: LIPASE 466 U/L (1.0-51.0)
[2017-11-04 08:01] VITALS: BP 136/92
[2017-11-04] MEDS ORDERED: NICOTINE PATCH1 EAC1 TD (14:03)
[2017-11-04] MEDS ORDERED: PANTOPRAZOLE SO40 MG PO (14:04)
[2017-11-04] MEDS ORDERED: FERROUS SULFAT325 MG PO (14:05)
[2017-11-04] MEDS ORDERED: CEFTIN500 MG PO (14:06)
[2017-11-25] MEDS ORDERED: IRON325 M1 PO (09:40)
== END 2017-11-04 15:37 | disposition home or self-care (01) | DRG 438 ==
LOC: EME 22:12 → EDOF 11-01 03:00 → ENRESERV 11-01 03:25 → 2EAST 11-01 04:41
PROVIDERS: Emergency Medicine; Family Medicine; Family Medicine Sports Medicine; Internal Medicine Gastroenterology
DX: K85.20 Alcohol induced acute pancreatitis without necrosis or infection (principal); K29.70 Gastritis, unspecified, without bleeding; N39.0 Urinary tract infection, site not specified; E86.0 Dehydration; E83.51 Hypocalcemia; E87.5 Hyperkalemia; E87.6 Hypokalemia; E83.42 Hypomagnesemia; E87.2 Acidosis; D69.6 Thrombocytopenia, unspecified; I81 Portal vein thrombosis; F10.229 Alcohol dependence with intoxication, unspecified; F10.239 Alcohol dependence with withdrawal, unspecified; R64 Cachexia; Z68.1 Body mass index [BMI] 19.9 or less, adult; G93.89 Other specified disorders of brain; D33.2 Benign neoplasm of brain, unspecified; G91.2 (Idiopathic) normal pressure hydrocephalus; G62.9 Polyneuropathy, unspecified; D64.9 Anemia, unspecified; K76.0 Fatty (change of) liver, not elsewhere classified; I12.9 Hypertensive chronic kidney disease with stage 1 through stage 4 chronic kidney disease, or unspecified chronic kidney disease; N18.9 Chronic kidney disease, unspecified; E78.5 Hyperlipidemia, unspecified; K21.9 Gastro-esophageal reflux disease without esophagitis; G43.909 Migraine, unspecified, not intractable, without status migrainosus; J44.9 Chronic obstructive pulmonary disease, unspecified; H55.09 Other forms of nystagmus; G89.29 Other chronic pain; M54.5 Low back pain; M19.90 Unspecified osteoarthritis, unspecified site; F32.9 Major depressive disorder, single episode, unspecified; F41.9 Anxiety disorder, unspecified; F14.10 Cocaine abuse, uncomplicated; F17.210 Nicotine dependence, cigarettes, uncomplicated; Z86.14 Personal history of Methicillin resistant Staphylococcus aureus infection; Z86.19 Personal history of other infectious and parasitic diseases
CPT/HCPCS: 70450; 74177; 76705; 80048; 80048 91; 80053; 81003; 82272; 83540; 83690; 83735; 84466; 85025; 85027; 85610; 85730; 87077; 87086; 87186; 87641; 94799; 99281; 99285; G0480; J0696; J0780; J1200; J1650; J2405; J3475; J3480; J7030; J7050; J7120

== ENCOUNTER → 2017-11-27 | Outpatient (CLI) | payer OTHER ==
[~2017-11-27] VITALS: Ht 162.6 cm; Wt 44.0 kg
[~2017-11-27] MED LIST changes: +ANTABUSE250 MG PO; +CEFTIN500 MG PO; +CLOBETASOL PROP60 G1 TP; +IBUPROFEN200 M1 PO; +IRON325 M1 PO; +KLOR-CON M2020 MEQ PO; +LOPID600 MG PO; +PAIN RELIEF325 M1 PO; +PANTOPRAZOLE SO40 MG PO; +SUMATRIPTA6 MG/0.5 M IM/SC; +TUMS500 MG PO
[2017-11-27 07:20] LABS: HEMOGLOBIN 10.4 G/DL (11.9-15.5); MCV 93.2 FL (83-99)
== END | disposition home or self-care (01) ==
LOC: AMB 06:54
PROVIDERS: Anesthesiology
DX: K29.80 Duodenitis without bleeding (principal); B37.81 Candidal esophagitis; K22.10 Ulcer of esophagus without bleeding; K29.70 Gastritis, unspecified, without bleeding; K44.9 Diaphragmatic hernia without obstruction or gangrene; I10 Essential (primary) hypertension; K21.9 Gastro-esophageal reflux disease without esophagitis; D64.9 Anemia, unspecified; E03.9 Hypothyroidism, unspecified; F10.20 Alcohol dependence, uncomplicated; F17.210 Nicotine dependence, cigarettes, uncomplicated
CPT/HCPCS: 85014; 85018; 88305; 88342 TC; 93005; J2250